=== PATIENT | male | born 1965 | race African-American/Black ===

== ENCOUNTER 2019-05-01 22:29 | Inpatient (IN) | payer OTHER ==
[~2019-05-01] VITALS: Ht 182.9 cm; Wt 106.1 kg
[2019-05-01] MEDS ORDERED: methylPREDNISolone SOD SUCC 125 MG/2 ML VL ONE (22:31)
[2019-05-01] MEDS ORDERED: SODIUM CHLORIDE 0.9% 1,000 ML IV ONE (22:38)
[2019-05-01] MEDS ORDERED: ONDANSETRON HCL 4 MG/2 ML VIAL ONE (22:41)
[2019-05-01] MEDS ORDERED: IPRATROPIUM BROM 0.5 MG/2.5ML INH SOL NEB ONE (22:45)
[2019-05-01] MEDS ORDERED: ALBUTEROL SULF 2.5 MG/0.5ML(0.5%) NEB SOLN NEB ONE (22:45)
[2019-05-01] MEDS ORDERED: ONDANSETRON HCL 4 MG/2 ML VIAL IV ONE (22:45)
[2019-05-01] MEDS ORDERED: methylPREDNISolone SOD SUCC 125 MG/2 ML VL IV ONE (22:45)
[2019-05-01 23:22] LABS: Basophils # (auto) 0 uL; Eosinophils # (auto) 0.3 uL; Eosinophils % (auto) 5.7 % (0.0-7.0); Hematocrit 40.4 % (41.0-53.0); Hemoglobin 12.6 g/dL (13.5-17.5); Lymphocytes # (auto) 2.2 uL; Lymphocytes % (auto) 46.3 % (10.0-50.0); Mean Corpuscular Hemoglobin 22.3 pg (28.0-32.0); Mean Corpuscular Hgb Conc. 31.3 g/dL (32.0-36.0); Mean Corpuscular Volume 71.2 fL (80.0-100.0); Monocytes # (auto) 0.5 uL; Monocytes % (auto) 11.6 % (0.0-12.0); Neutrophils # (auto) 1.6 uL; Neutrophils % (auto) 35.4 % (37.0-80.0); Nucleated Red Blood Cells % 0.2 %; Platelet Count (auto) 295 10^3/uL (140-450); Red Blood Cells 5.67 10^6/uL (4.5-5.90); Red Cell Distribution Width 19.1 % (11.8-14.3); White Blood Cell 4.7 10^3/uL (4.4-10.8)
[2019-05-01 23:41] LABS: Alanine Aminotransferase 41 U/L (16-61); Albumin 3.9 g/dL (3.4-5.0); Anion Gap 13 (5-15); Aspartate Aminotransferase 42 U/L (15-37); BUN/Creatinine Ratio 10.7; Blood Urea Nitrogen 12 mg/dL (7-18); Calcium 8.6 mg/dL (8.5-10.1); Carbon Dioxide 21 mmol/L (21-32); Chloride 110 mmol/L (98-107); GFR African American 88 mL/min; GFR Non-African American 72 mL/min; Glucose 106 mg/dL (74-106); Potassium 3.4 mmol/L (3.5-5.1); Salicylate < 1.7 mg/dL (2.8-20.0); Sodium 144 mmol/L (136-145)
[2019-05-01 23:46] LABS: Acetaminophen < 2.0 ug/mL (10-30); Alkaline Phosphatase 99 U/L (45-117); Bilirubin, Total 0.3 mg/dL (0.2-1.0); Total Protein 8.3 g/dL (6.4-8.2)
[2019-05-02] VITALS (9 sets, daily range): BP systolic 118–172; BP diastolic 69–117
[2019-05-02 01:48] LABS: Urine Bacteria FEW /hpf (None Seen); Urine Blood Negative /uL (Negative); Urine Hyaline Cast MOD /lpf (0 - 2); Urine WBC 1 /hpf (0 - 3)
[2019-05-02 02:00] LABS: Amphetamine Screen, Urine NEGATIVE (NEGATIVE); Barbiturate Scree,Urine NEGATIVE (NEGATIVE); Benzodiazephine Screen, Urine NEGATIVE (NEGATIVE); Cannabinoid Screen, Urine NEGATIVE (NEGATIVE); Cocaine Screen, Urine NEGATIVE (NEGATIVE); Opiate Scree,Urine NEGATIVE (NEGATIVE); Phencyclidine Screen, Urine NEGATIVE (NEGATIVE)
[2019-05-02] MEDS ORDERED: MORPHINE SULF INJ 2 MG/ML SYRINGE 1ML IV PRN ×2 (05:30)
[2019-05-02] MEDS ORDERED: ACETAMINOPHEN 500 MG TAB PO PRN (05:30)
[2019-05-02] MEDS ORDERED: NITROGLYCERIN 0.4 MG SL TAB SL PRN (05:30)
[2019-05-02] MEDS ORDERED: POTASSIUM EFFERVESENT TAB 25 MEQ PO ONE (06:00)
[2019-05-02] MEDS ORDERED: AZITHROMYCIN 500MG/ 250ML 250 ML IV ONE (06:15)
[2019-05-02] MEDS: IPRATROPIUM BROM 0.5 MG/2.5ML INH SOL NEB SCH ×3 (06:23→19:10)
[2019-05-02] MEDS: ALBUTEROL SULF 2.5 MG/0.5ML(0.5%) NEB SOLN NEB SCH ×3 (06:24→19:10)
--- NOTE | 2019-05-02 09:40 | NUR ---
Telemetry admit from [facility] admitted to Telemetry unit after SBAR received from SATHYA Carpenter. Patient oriented to AMRITA JON RN primary RN, unit, room, bed, and unit policies regarding patient care and visiting hours. Patient now on continuous telemetry monitoring, tele box # 10 and telemetry reading on arrival to unit is NSR reading 95BPM. Patient placed on bedside oxygen @ 4l N/C weighed by bedscale and encouraged to call if they need something with call light within reach. Bed in low/locked position, bed rails up x2. All questions and concerns addressed, patient verbalized understanding.
[2019-05-02] MEDS ORDERED: LEVOFLOXACIN 750MG 150 ML IV SCH (10:00)
[2019-05-02] MEDS ORDERED: cefTRIAXone 1GM/50ML D5W 50 ML IV SCH (10:00)
[2019-05-02] MEDS ORDERED: methylPREDNISolone SOD SUCC 40 MG/ML VL IV SCH (10:00)
[2019-05-02] MEDS ORDERED: AZITHROMYCIN 500MG/ 250ML 250 ML IV SCH (10:00)
--- NOTE | 2019-05-02 10:01 | NUR ---
VISITORS PATIENT STATED "I DON'T WANT ANY VISITORS OTHER THAN KELSI HINES AND HER CHILDREN." WILL INFORM SECURITY
[2019-05-02] MEDS: FAMOTIDINE 20 MG TAB PO SCH (10:26)
[2019-05-02] MEDS ORDERED: TRAZ150T79 PO (10:28)
[2019-05-02] MEDS ORDERED: FOLIC ACID 1 MG TAB PO ONE (12:45)
[2019-05-02] MEDS ORDERED: THIAMINE HCL 100 MG TAB PO ONE (12:45)
[2019-05-02] MEDS ORDERED: POTASSIUM CHL 20 Meq TABLET PO ONE (13:00)
[2019-05-02] MEDS ORDERED: chlordiazePOXIDE HCL 5 MG CAP PO PRN (13:00)
[2019-05-02] MEDS ORDERED: FUROSEMIDE 20 MG/2 ML VIAL IV ONE (13:00)
--- NOTE | 2019-05-02 13:00 | NUR ---
MD ROUNDS DR ALMANZA AT BEDSIDE DISCUSSING POC WITH PATIENT. ANSWERED ALL QUESTIONS/CONCERNS. NEW ORDERS RECEIVED/CARRIED OUT. WILL CONTINUE TO MONITOR
--- NOTE | 2019-05-02 13:15 | NUR ---
LAB RAPID INFLUENZA SWAB SENT
[2019-05-02] MEDS: cloNIDine HCL 0.1 MG TAB PO PRN ×2 (13:23→17:48)
[2019-05-02 14:24] LABS: % Iron Saturation 6.8 % (20-55)
[2019-05-02 14:27] LABS: Magnesium 1.9 mg/dL (1.6-2.6)
[2019-05-02] MEDS: BUDESONIDE (INHALATION) 0.5 MG/2 ML NEB NEB SCH (19:10)
--- NOTE | 2019-05-02 19:13 | NUR ---
Opening Shift Note Assumed care of patient, awake and alert x4. No S/S of distress/SOB or pain. RT is at bedside administering a breathing treatment. Instructed on POC and to call for assist PRN. All questions and concerns answered, will continue to monitor for changes Q1hr and PRN.
--- NOTE | 2019-05-02 20:00 | NUR ---
Refused physical assessment Patient is refusing to have a physical assessment completed stating he is too tired and that he'll do it tomorrow. He did allow me to assess his lung sounds but refused everything else. No S/S of distress, SOB, or pain. He is receiving oxygen via nasal cannula at 2 L/min.
--- NOTE | 2019-05-02 20:07 | NUR ---
Paged hospitalist, patient is requesting a sleeping pill.
--- NOTE | 2019-05-02 20:25 | NUR ---
Hospitalist called back, new order received to continue home medication trazodone HCL 150mg tab. Will carry out and continue to monitor patient.
[2019-05-02] MEDS: traZODone HCL 50 MG TAB PO PRN (21:41)
[2019-05-02] MEDS: methylPREDNISolone SOD SUCC 125 MG/2 ML VL IV SCH (21:41)
[2019-05-02] MEDS: HYDROcodone-ACET 5/325MG TAB PO PRN (21:50)
[2019-05-03 04:30] VITALS: BP 135/96
[2019-05-03 06:20] LABS: Basophils # (auto) 0.1 uL; Basophils % (auto) 1.1 % (0.0-2.0); Eosinophils # (auto) 0 uL; Hematocrit 37.6 % (41.0-53.0); Hemoglobin 11.5 g/dL (13.5-17.5); Lymphocytes # (auto) 0.5 uL; Lymphocytes % (auto) 4.3 % (10.0-50.0); Mean Corpuscular Hemoglobin 21.8 pg (28.0-32.0); Mean Corpuscular Hgb Conc. 30.6 g/dL (32.0-36.0); Mean Corpuscular Volume 71.3 fL (80.0-100.0); Monocytes # (auto) 0.4 uL; Monocytes % (auto) 3.2 % (0.0-12.0); Neutrophils # (auto) 10.8 uL; Neutrophils % (auto) 91.4 % (37.0-80.0); Nucleated Red Blood Cells % 0.1 %; Platelet Count (auto) 254 10^3/uL (140-450); Red Blood Cells 5.26 10^6/uL (4.5-5.90); Red Cell Distribution Width 19.1 % (11.8-14.3); White Blood Cell 11.8 10^3/uL (4.4-10.8)
[2019-05-03 06:38] LABS: BUN/Creatinine Ratio 15.9; Calcium 7.8 mg/dL (8.5-10.1); Potassium 4.3 mmol/L (3.5-5.1)
[2019-05-03] MEDS: IPRATROPIUM BROM 0.5 MG/2.5ML INH SOL NEB SCH ×3 (06:45→18:03)
[2019-05-03] MEDS: BUDESONIDE (INHALATION) 0.5 MG/2 ML NEB NEB SCH ×2 (06:45→18:03)
[2019-05-03] MEDS: ALBUTEROL SULF 2.5 MG/0.5ML(0.5%) NEB SOLN NEB SCH ×3 (06:45→18:03)
--- NOTE | 2019-05-03 07:30 | NUR ---
Opening Shift Note Assuming care of patient at this time. Patient is awake and alert. Patient denies pain. Bed is locked and lowered with side rails up x2. Patient shows no signs or symptoms of distress. Patient denies shortness of breath, though wheezes are auscultated upon expiration posteriorly. Patient refuses physical assessment at this time. Patient is sitting on the edge of the bed with feet dangling. Instructed patient on the plan of care or today and to call for assistance as needed. Call light within reach. Will continue to round hourly and as needed.
--- NOTE | 2019-05-03 08:00 | NUR ---
Refusing Physical Assessment Patient is refusing physical assessment at this time. When asked why patient states, "I'm busy watching TV." Educated patient on the importance of physical assessment in order to monitor patient. Patient continues to refuse, however, lets this RN auscultate his lungs. Physical assessment was documented according to patient's answers and visual cues. Will continue to try and assess and educate throughout shift.
[2019-05-03 09:00] VITALS: BP 152/108
[2019-05-03] MEDS ORDERED: AZITHROMYCIN 250 MG TAB PO ONE (10:30)
[2019-05-03] MEDS: FOLIC ACID 1 MG TAB PO SCH (10:46)
[2019-05-03] MEDS: methylPREDNISolone SOD SUCC 125 MG/2 ML VL IV SCH ×2 (10:46→21:03)
[2019-05-03] MEDS: FAMOTIDINE 20 MG TAB PO SCH (10:47)
[2019-05-03] MEDS: THIAMINE HCL 100 MG TAB PO SCH (10:47)
[2019-05-03] MEDS: cloNIDine HCL 0.1 MG TAB PO PRN (13:26)
--- NOTE | 2019-05-03 15:40 | NUR ---
Transfer; I have called [facility] at their [place] office and spoke to Jany who is in pt coordinator at [phone] ext [phone] She is to notifiy transfer CM and get back to me . [facility] will need to give me auth for transport and names of facilities.
--- NOTE | 2019-05-03 16:03 | NUR ---
Transfer: Dr Daniels at [facility] reviewed chart and stated pt does not need to be transferred into network and that pt will stay at this facility. Authorization for stay has been given by [facility] of [facility]
--- NOTE | 2019-05-03 16:07 | NUR ---
Dr. Saeed paged and notifed of Dr. Daniels not wanting to transfer pt and that auth for in pt stay given , [facility]
--- NOTE | 2019-05-03 16:10 | NUR ---
Call from Call from Dr. Saeed. Dr. Saeed aware of patient not being transferred. Patient's stay is authorized. Order to cancel discharge and social service consult order. Will notify patient.
[2019-05-03] MEDS: HYDROcodone-ACET 5/325MG TAB PO PRN (16:21)
[2019-05-03 17:36] VITALS: BP 145/91
[2019-05-03] MEDS: FERROUS SULFATE 325 MG TAB PO SCH (17:53)
--- NOTE | 2019-05-03 19:30 | NUR ---
RECEIVED PT FROM DAY RN POC REVIEWED
--- NOTE | 2019-05-03 19:39 | NUR ---
Closing Shift Note Patient resting in bed. NO distress noted. Will endorse care to the night shift manager RN.
[2019-05-03] MEDS: traZODone HCL 50 MG TAB PO PRN (21:02)
[2019-05-03 22:00] VITALS: BP 140/97
[2019-05-04] VITALS (7 sets, daily range): BP systolic 144–161; BP diastolic 92–110
--- NOTE | 2019-05-04 02:32 | NUR ---
resting comfortable with eyes closed resp even and unlabored
--- NOTE | 2019-05-04 06:55 | NUR ---
REPORT GIVEN TO AM NURSE POC REVIEWED
[2019-05-04] MEDS: IPRATROPIUM BROM 0.5 MG/2.5ML INH SOL NEB SCH ×4 (07:27→22:17)
[2019-05-04] MEDS: ALBUTEROL SULF 2.5 MG/0.5ML(0.5%) NEB SOLN NEB SCH ×4 (07:27→22:17)
--- NOTE | 2019-05-04 07:36 | NUR ---
Opening Shift Note Assumed care of patient, awake and alert. No S/S of distress/SOB. Pt denies any pain at this time. Bed in lowest and locked position with side rails up x2 and call light within reach. Instructed on POC and to call for assist PRN, will continue to monitor for changes Q1hr and PRN.
--- NOTE | 2019-05-04 09:30 | NUR ---
IV removal RIGHT AC IV DC'd with clean sterile technique, catheter fully intact. Pressure dressing applied to site. Patient tolerated well.
--- NOTE | 2019-05-04 09:30 | NUR ---
IV insertion IV access obtained, via clean sterile technique by inserting 20 gauge catheter at LEFT FA after 1 attempt(s). IV secured properly. No trauma to site. Patient tolerated well.
[2019-05-04] MEDS: FOLIC ACID 1 MG TAB PO SCH (10:00)
[2019-05-04] MEDS: methylPREDNISolone SOD SUCC 125 MG/2 ML VL IV SCH ×2 (10:00→17:35)
[2019-05-04] MEDS: FERROUS SULFATE 325 MG TAB PO SCH ×2 (10:00→17:35)
[2019-05-04] MEDS: THIAMINE HCL 100 MG TAB PO SCH (10:00)
[2019-05-04] MEDS: FAMOTIDINE 20 MG TAB PO SCH (10:01)
[2019-05-04] MEDS: AZITHROMYCIN 250 MG TAB PO SCH (10:01)
[2019-05-04] MEDS: cloNIDine HCL 0.1 MG TAB PO PRN (10:02)
[2019-05-04] MEDS ORDERED: ENOXAPARIN SOD 40 MG/0.4 ML SYRINGE SC ONE (10:30)
[2019-05-04] MEDS: BUDESONIDE (INHALATION) 0.5 MG/2 ML NEB NEB SCH ×2 (11:18→18:11)
--- NOTE | 2019-05-04 12:12 | NUR ---
Nutrition Assessment Notes please see attached link for complete assessment Est. Needs ABW [id number] kcal (23-25 kcal/kgBW), 97-106 gms pro (1.0-1.1 gms/kgBW). Will continue to monitor pertinent labs and reassess nutrient need prn Addendum: 05/04/19 at [address] Amended: Links added.
[2019-05-04] MEDS ORDERED: methylPREDNISolone SOD SUCC 125 MG/2 ML VL IV SCH (18:00)
[2019-05-04] MEDS: traZODone HCL 50 MG TAB PO PRN (20:58)
[2019-05-04] MEDS: HYDROcodone-ACET 5/325MG TAB PO PRN (20:58)
[2019-05-05] MEDS: ALBUTEROL SULF 2.5 MG/0.5ML(0.5%) NEB SOLN NEB SCH ×6 (02:00→22:03)
[2019-05-05] MEDS: IPRATROPIUM BROM 0.5 MG/2.5ML INH SOL NEB SCH ×6 (02:00→22:03)
--- NOTE | 2019-05-05 02:08 | NUR ---
PT REFUSED MED NEB TX SCHEDULED FOR 0200. PT REQUESTED TO REMAIN ASLEEP. WILL CONTINUE WITH NEXT SCHEDULED TX.
[2019-05-05 05:00] VITALS: BP 151/98
[2019-05-05] MEDS: methylPREDNISolone SOD SUCC 125 MG/2 ML VL IV SCH ×2 (06:20→17:02)
--- NOTE | 2019-05-05 08:00 | NUR ---
Opening Shift Note Assumed care of patient, awake and alert. No S/S of distress/SOB or pain. Patient stated he is feeling better today, though he still has expiratory wheezing. He stated the medications are working. Instructed on POC and to call for assist PRN, will continue to monitor for changes Q1hr and PRN.
[2019-05-05] MEDS: FERROUS SULFATE 325 MG TAB PO SCH ×2 (08:18→17:02)
[2019-05-05] MEDS: HYDROcodone-ACET 5/325MG TAB PO PRN ×2 (08:57→20:11)
[2019-05-05 09:00] VITALS: BP 161/102
[2019-05-05] MEDS: THIAMINE HCL 100 MG TAB PO SCH (09:18)
[2019-05-05] MEDS: FOLIC ACID 1 MG TAB PO SCH (09:18)
[2019-05-05] MEDS: FAMOTIDINE 20 MG TAB PO SCH (09:18)
[2019-05-05] MEDS: AZITHROMYCIN 250 MG TAB PO SCH (09:19)
[2019-05-05] MEDS: ENOXAPARIN SOD 40 MG/0.4 ML SYRINGE SC SCH (09:19)
[2019-05-05 09:33] VITALS: BP 151/98
[2019-05-05] MEDS: cloNIDine HCL 0.1 MG TAB PO PRN (10:18)
[2019-05-05] MEDS: BUDESONIDE (INHALATION) 0.5 MG/2 ML NEB NEB SCH ×2 (11:04→22:03)
--- NOTE | 2019-05-05 13:34 | NUR ---
assessment Patient is a 53 year old male who is alert and oriented. Patients cognitive abilities are intact. Prior to admission patient lived home with family and functioned independently. Patient informed me he is able to care for his own ADLs. Per patient he will return home to his prior living arrangements post discharge and family will transport him home. Patient informed me he has no PCP. Patient informed me he just moved back to the area from [place]. Patient was in [place] for the past 1.5 years. Ele Elizalde to see patient for PCP. Patient informed me he feels safe returning home on discharge. Patient has home 02 and a nebulizer. Patient has no post discharge needs at this time. I informed patient he has a right to speak to a geriatric social worker regarding all care. I informed patient he has a right to participate in any and all discharge planning. Patient does not have a POA and advanced directive. I have offered patient information on POA and advanced directives. I informed the patient the advantages and benefits of having an Advanced Directive. Patient verbalized understanding and agreed to discharge plan. Addendum: 05/05/19 at 1337 by Ele COE Amended: Links added.
[2019-05-05] MEDS ORDERED: amLODIPine BESYLATE 5 MG TAB PO ONE (13:45)
[2019-05-05 14:11] VITALS: BP 147/97
[2019-05-05 17:21] VITALS: BP 158/93
--- NOTE | 2019-05-05 19:50 | NUR ---
RECEIVED PATIENT FROM DAY SHIFT RN. PATIENT RESTING IN BED. NO S/S OF DISTRESS NOTED. C/O BACK PAIN @ 05/05. WILL COME BACK FOR PAIN MEDICATION LATER. POC INSTRUCTED AND ENCOURAGED PATIENT TO CALL FOR ELECTRICIAN MARINE IF NEEDED. BED IN LOWEST POSITION WITH SIDE RAILS UP X 2. CALL [facility] WITHIN REACH. CONTINUE TO MONITOR FOR CHANGES Q1H AND PRN.
--- NOTE | 2019-05-05 20:11 | NUR ---
MEDICATED PATIENT FOR PAIN @ 05/05. CONTINUE TO MONITOR.
[2019-05-05] MEDS: traZODone HCL 50 MG TAB PO PRN (21:12)
--- NOTE | 2019-05-05 21:12 | NUR ---
PATIENT PREFERRED TO HAVE TRAZODONE NOW INSTEAD OF RESTORIL. MEDICATED PATIENT ORDERED. CONTINUE TO MONITOR.
[2019-05-05 22:00] VITALS: BP 158/99
[2019-05-05] MEDS ORDERED: TEMAZEPAM 15 MG CAP PO ONE (22:00)
--- NOTE | 2019-05-06 01:39 | NUR ---
PATIENT SLEEPING. NO S/S OF DISTRESS NOTED. CONTINUE CARE.
[2019-05-06] MEDS: IPRATROPIUM BROM 0.5 MG/2.5ML INH SOL NEB SCH ×6 (02:00→22:48)
[2019-05-06] MEDS: ALBUTEROL SULF 2.5 MG/0.5ML(0.5%) NEB SOLN NEB SCH ×6 (02:00→22:48)
--- NOTE | 2019-05-06 04:45 | NUR ---
RECEIVED CALL FROM [facility], PATIENT HAD A RUN OF VT OF 4 BEATS, CHECKED PATIENT NO S/S OF DISTRESS NOTED. DENIED PAIN AND ANY CHEST DISCOMFORT. VITALS STABLE: TEMP 98, HR 79, RR 22, BP 148/92, O2 SAT 97% ON 2L/NC. PATIENT IS SR 73 NOW. WILL REPORT TO DAY SHIFT RN TO MD. CONTINUE TO MONITOR.
[2019-05-06 05:00] VITALS: BP 148/92
[2019-05-06] MEDS: methylPREDNISolone SOD SUCC 125 MG/2 ML VL IV SCH ×2 (05:59→18:13)
[2019-05-06] MEDS: BUDESONIDE (INHALATION) 0.5 MG/2 ML NEB NEB SCH ×2 (07:10→22:47)
--- NOTE | 2019-05-06 08:00 | NUR ---
Opening Shift Note Assumed care of patient, awake and alert. Patient want to go home today and says she is ready. No S/S of distress/SOB or pain. Instructed on POC and to call for assist PRN, will continue to monitor for changes Q1hr and PRN.
[2019-05-06 09:00] VITALS: BP 149/100
[2019-05-06] MEDS: HYDROcodone-ACET 5/325MG TAB PO PRN ×3 (09:20→21:11)
[2019-05-06] MEDS: FOLIC ACID 1 MG TAB PO SCH (09:23)
[2019-05-06] MEDS: FERROUS SULFATE 325 MG TAB PO SCH ×2 (09:23→18:13)
[2019-05-06] MEDS: AZITHROMYCIN 250 MG TAB PO SCH (09:24)
[2019-05-06] MEDS: FAMOTIDINE 20 MG TAB PO SCH (09:24)
[2019-05-06] MEDS: THIAMINE HCL 100 MG TAB PO SCH (09:24)
[2019-05-06] MEDS: ENOXAPARIN SOD 40 MG/0.4 ML SYRINGE SC SCH (09:25)
[2019-05-06] MEDS ORDERED: amLODIPine BESYLATE 5 MG TAB PO SCH (10:00)
--- NOTE | 2019-05-06 11:28 | NUR ---
PT REQUESTING SODA PATIENT REQUESTED JEAN-CLAUDE ROXY. HE WAS INFORMED THAT WE DO NOT STOCK ANY SODA ON THE FLOOR BUT THAT THIS NURSE WOULD CALL DIETARY AND REQUEST THAT TWO CANS BE SENT UP FOR LUNCH. HE STATED IF WE DO NOT HAVE JEAN-CLAUDE [facility]OXY THAT [facility] WOULD BE ACCEPTABLE. HE ALSO WANTS TWO CANS SENT WITH EACH MEAL. THIS NURSE CALLED AND LEFT A MESSAGE WITH DIETARY AND ALSO ADDED A NOTE TO THE PATIENT'S DIET ORDER.
[2019-05-06 13:00] VITALS: BP 142/96
[2019-05-06 17:00] VITALS: BP 148/88
--- NOTE | 2019-05-06 19:11 | NUR ---
RECEIVED PATIENT FROM DAY SHIFT RN. PATIENT RESTING IN BED. NO S/S OF DISTRESS NOTED. C/O BACK PAIN @ 4/10 AFTER MEDICATION EARLIER. WILL COME BACK FOR PAIN MEDICATION LATER WHEN THE TIME IS DUE AND PER PATIENT REQUESTS. POC INSTRUCTED AND ENCOURAGED PATIENT TO CALL FOR CLASS B DRIVER IF NEEDED. BED IN LOWEST POSITION WITH SIDE RAILS UP X 2. CALL [facility] WITHIN REACH. CONTINUE TO MONITOR FOR CHANGES Q1H AND PRN.
[2019-05-06] MEDS: traZODone HCL 50 MG TAB PO PRN (21:10)
--- NOTE | 2019-05-06 21:21 | NUR ---
MEDICATED PATIENT FOR BACK PAIN @ 05/05. CONTINUE TO MONITOR.
[2019-05-06 22:00] VITALS: BP 155/102
--- NOTE | 2019-05-07 01:20 | NUR ---
PATIENT SLEEPING. NO S/S OF DISTRESS NOTED. CONTINUE CARE.
[2019-05-07] MEDS: IPRATROPIUM BROM 0.5 MG/2.5ML INH SOL NEB SCH ×6 (02:00→22:39)
[2019-05-07] MEDS: ALBUTEROL SULF 2.5 MG/0.5ML(0.5%) NEB SOLN NEB SCH ×6 (02:00→22:39)
--- NOTE | 2019-05-07 02:17 | NUR ---
RT NOTE PT ASKED NOT TO BE WOKEN FOR THIS SCHEDULED TX IF SLEEPING. PT SLEEPING. NO SIGNS OF RESP DISTRESS NOTED BY RT. PT AWARE THAT HE CAN HAVE RT PAGED IF NEEDED.
[2019-05-07 05:00] VITALS: BP 140/85
[2019-05-07] MEDS: methylPREDNISolone SOD SUCC 125 MG/2 ML VL IV SCH ×2 (05:49→21:25)
--- NOTE | 2019-05-07 05:56 | NUR ---
PATIENT SLEEPING. NO S/S OF DISTRESS NOTED. CONTINUE CARE.
[2019-05-07 08:00] VITALS: BP 149/100
[2019-05-07] MEDS: FERROUS SULFATE 325 MG TAB PO SCH ×2 (08:54→18:10)
[2019-05-07] MEDS: HYDROcodone-ACET 5/325MG TAB PO PRN ×2 (08:54→16:22)
[2019-05-07 09:00] VITALS: BP 139/78
[2019-05-07] MEDS: amLODIPine BESYLATE 5 MG TAB PO SCH (10:23)
[2019-05-07] MEDS: AZITHROMYCIN 250 MG TAB PO SCH (10:23)
[2019-05-07] MEDS: THIAMINE HCL 100 MG TAB PO SCH (10:24)
[2019-05-07] MEDS: ENOXAPARIN SOD 40 MG/0.4 ML SYRINGE SC SCH (10:24)
[2019-05-07] MEDS: FOLIC ACID 1 MG TAB PO SCH (10:24)
[2019-05-07] MEDS: FAMOTIDINE 20 MG TAB PO SCH (10:24)
[2019-05-07] MEDS: BUDESONIDE (INHALATION) 0.5 MG/2 ML NEB NEB SCH ×2 (10:34→22:40)
--- NOTE | 2019-05-07 11:28 | NUR ---
Nutrition Follow-up Notes Wt.: 112.8 kg Pt was sleeping with no family by bedside. per pt records pt with acute on chronic resp distress, wheezing now improving. pt is currently on cardiac diet with adequate PO of 100% x 4 per RN doc Est. Needs ABW [id number] kcal (23-25 kcal/kgBW), 97-106 gms pro (1.0-1.1 gms/kgBW). Will continue to monitor pertinent labs and reassess nutrient need prn Labs: No new labs today 05/03: GLU 144 H, CA 7.8 L. Skin: Quan scale 19, low risk, skin intact per RN doc per packaging technician. GI: Pt had 1 BM yesterday per packaging technician. PES: Decreased nutrient needs r.t adiposity aeb pt`s high BMI of 34.1 kgm2 Altered nutrition related lab values r/t current/chronic medical condition aeb hyperglycemia, hypocalcemia Will continue to monitor PO intake, pertinent labs, skin status and weight trends. F/u in 3-5 days. Rec: 1.) refer to [employer] dietitian on DC. 2) continue current plan of care
[2019-05-07 13:00] VITALS: BP 148/96
[2019-05-07 17:00] VITALS: BP 145/89
[2019-05-07 21:12] VITALS: BP 140/85
[2019-05-07] MEDS: traZODone HCL 50 MG TAB PO PRN (21:25)
[2019-05-08] VITALS (7 sets, daily range): BP systolic 134–152; BP diastolic 78–98
[2019-05-08] MEDS: ALBUTEROL SULF 2.5 MG/0.5ML(0.5%) NEB SOLN NEB SCH ×7 (02:00→23:06)
[2019-05-08] MEDS: IPRATROPIUM BROM 0.5 MG/2.5ML INH SOL NEB SCH ×7 (02:00→23:06)
[2019-05-08] MEDS: methylPREDNISolone SOD SUCC 125 MG/2 ML VL IV SCH ×3 (06:41→20:48)
[2019-05-08] MEDS: HYDROcodone-ACET 5/325MG TAB PO PRN ×2 (08:37→18:37)
[2019-05-08] MEDS: FERROUS SULFATE 325 MG TAB PO SCH ×2 (08:47→18:11)
[2019-05-08] MEDS: BUDESONIDE (INHALATION) 0.5 MG/2 ML NEB NEB SCH ×2 (09:48→22:57)
[2019-05-08] MEDS: ENOXAPARIN SOD 40 MG/0.4 ML SYRINGE SC SCH (10:00)
[2019-05-08] MEDS: FOLIC ACID 1 MG TAB PO SCH (10:03)
[2019-05-08] MEDS: amLODIPine BESYLATE 5 MG TAB PO SCH (10:04)
[2019-05-08] MEDS: FAMOTIDINE 20 MG TAB PO SCH (10:04)
[2019-05-08] MEDS: THIAMINE HCL 100 MG TAB PO SCH (10:05)
[2019-05-08] MEDS: AZITHROMYCIN 250 MG TAB PO SCH (10:05)
--- NOTE | 2019-05-08 17:56 | NUR ---
Respiratory note: At bedside for med neb tx. Pt tolerating tx well via mask. Pt communicated he only does the 1800 and 2200 noc txs, so he wished not to be woken up at that time. Will continue to monitor and communicate pts wishes to assigned NOC RN
--- NOTE | 2019-05-08 19:05 | NUR ---
OPENING NOTE- NOC SHIFT PATIENT IS SITTING UP IN BED. NO S/SX OF DISTRESS, SOB OR PAIN. BED IS LOCKED AT LOWEST. BEDSIDE TABLE WITHIN REACH. INSTRUCTED PATIENT TO CALL PRN; PATIENT VERBALIZED UNDERSTANDING WILL CONTINUE TO MONITOR Q1H AND PRN.
--- NOTE | 2019-05-08 20:05 | NUR ---
WHEEZING UPON AUSCULTATION NOTED INSPIRATORY AND EXPIRATORY WHEEZING THROUGHOUT LUNGS, MORE NOTICEABLE TO LEFT MIDDLE LOBE. PATIENT DENIES SOB OR DIZZINESS. VS WITHIN NORMAL LIMITS. NO S/SX OF DISTRESS.
[2019-05-08] MEDS: traZODone HCL 50 MG TAB PO PRN (20:54)
[2019-05-09] VITALS (7 sets, daily range): BP systolic 134–142; BP diastolic 79–88
[2019-05-09] MEDS: methylPREDNISolone SOD SUCC 125 MG/2 ML VL IV SCH ×3 (05:11→21:04)
[2019-05-09] MEDS: IPRATROPIUM BROM 0.5 MG/2.5ML INH SOL NEB SCH ×5 (06:10→22:39)
[2019-05-09] MEDS: ALBUTEROL SULF 2.5 MG/0.5ML(0.5%) NEB SOLN NEB SCH ×5 (06:11→22:40)
--- NOTE | 2019-05-09 07:30 | NUR ---
CLOSING NOTE- NOC SHIFT ENDORSED PATIENT CARE TO DAY SHIFT NURSE KINGSTON MCDONNELL NO S/SX OF DISTRESS, SOB OR PAIN. PATIENT RESTING COMFORTABLE IN BED.
--- NOTE | 2019-05-09 07:50 | NUR ---
Opening Shift Note Assumed care of patient, awake and alert. No S/S of distress/SOB or pain. Instructed on POC and to call for assist PRN, will continue to monitor for changes Q1hr and PRN. Bed locked in lowest position with two side rails up and call light in reach.
[2019-05-09] MEDS: FERROUS SULFATE 325 MG TAB PO SCH ×2 (08:18→19:14)
[2019-05-09] MEDS: HYDROcodone-ACET 5/325MG TAB PO PRN ×3 (08:18→21:06)
[2019-05-09] MEDS: THIAMINE HCL 100 MG TAB PO SCH (09:48)
[2019-05-09] MEDS: FAMOTIDINE 20 MG TAB PO SCH (09:48)
[2019-05-09] MEDS: FOLIC ACID 1 MG TAB PO SCH (09:48)
[2019-05-09] MEDS: ENOXAPARIN SOD 40 MG/0.4 ML SYRINGE SC SCH (09:48)
[2019-05-09] MEDS: AZITHROMYCIN 250 MG TAB PO SCH (09:48)
[2019-05-09] MEDS: amLODIPine BESYLATE 5 MG TAB PO SCH (09:51)
[2019-05-09] MEDS: BUDESONIDE (INHALATION) 0.5 MG/2 ML NEB NEB SCH ×2 (10:06→18:44)
[2019-05-09] MEDS ORDERED: guaiFENesin-DM 100/10mg/5ml SYR PO PRN (10:30)
[2019-05-09] MEDS ORDERED: DEXTROSE (50%) 50ML SYRG IV PRN (10:30)
[2019-05-09 10:55] LABS: Hematocrit 43.1 % (41.0-53.0); Hemoglobin 13.5 g/dL (13.5-17.5); Mean Corpuscular Hgb Conc. 31.2 g/dL (32.0-36.0); Mean Corpuscular Volume 70.5 fL (80.0-100.0); Platelet Count (auto) 301 10^3/uL (140-450); Red Blood Cells 6.11 10^6/uL (4.5-5.90); Red Cell Distribution Width 19.2 % (11.8-14.3); White Blood Cell 14.5 10^3/uL (4.4-10.8)
[2019-05-09 10:58] LABS: Band Neutrophils % (manual) 0; Basophils % (manual) 0 (0.0-2.0); Blast Cells 0; Eosinophils % (manual) 0 (0-7); Metamyelocytes % 0; Myelocytes % 0; Promyelocytes % 0; Reactive Lymphocytes 0
[2019-05-09 11:11] LABS: Calcium 8.1 mg/dL (8.5-10.1); Potassium 4.8 mmol/L (3.5-5.1)
[2019-05-09 11:13] LABS: BUN/Creatinine Ratio 26.3; Lymphocytes % (manual) 7 (10.0-50.0); Monocytes % (manual) 2 (0-12)
[2019-05-09] MEDS: InsuLIN REG 1unit/0.01ml Soln (100units/ml) SC SCH ×3 (11:30→21:05)
[2019-05-09] MEDS: ACCU-CHEK COMFORT CURVE STRIP VI SCH ×3 (11:30→21:05)
--- NOTE | 2019-05-09 12:41 | NUR ---
DR ALMANZA ROUNDING PATIENT TO HAVE TELE DC'D TELE REMOVED AND RETURNED TO ICU BULLET.
--- NOTE | 2019-05-09 19:05 | NUR ---
PATIENT IS ALERT AND ORIENTED X4, LAYING IN BED WATCHING TELEVISION. BED RAILS ARE UP X2, BELONGINGS WITHIN REACH, CALL LIGHT WITHIN REACH. WILL CONTINUE TO MONITOR Q1H HOUR AND PRN.
--- NOTE | 2019-05-09 22:44 | NUR ---
PT REQUEST NOT TO BE DISTURBED FOR 0200 MED NEB TX, PT NOTIFIED TO HAVE RT PAGED IF SOB OCCURS.
[2019-05-10] MEDS: ALBUTEROL SULF 2.5 MG/0.5ML(0.5%) NEB SOLN NEB SCH ×6 (02:00→22:25)
[2019-05-10] MEDS: IPRATROPIUM BROM 0.5 MG/2.5ML INH SOL NEB SCH ×6 (02:00→22:25)
[2019-05-10 05:00] VITALS: BP 140/86
[2019-05-10] MEDS: HYDROcodone-ACET 5/325MG TAB PO PRN ×2 (05:06→21:20)
[2019-05-10] MEDS: InsuLIN REG 1unit/0.01ml Soln (100units/ml) SC SCH ×4 (05:46→21:18)
[2019-05-10] MEDS: methylPREDNISolone SOD SUCC 125 MG/2 ML VL IV SCH ×3 (05:46→21:18)
[2019-05-10] MEDS: ACCU-CHEK COMFORT CURVE STRIP VI SCH ×4 (05:47→21:19)
[2019-05-10] MEDS: BUDESONIDE (INHALATION) 0.5 MG/2 ML NEB NEB SCH ×2 (06:32→22:25)
--- NOTE | 2019-05-10 07:39 | NUR ---
CLOSING NOTE- NOC SHIFT PATIENT IS RESTING IN BED. ENDORSED PATIENT CARE TO DAY SHIFT RN. NO S/SX OF DISTRESS, SOB OR PAIN.
[2019-05-10 09:00] VITALS: BP 139/88
[2019-05-10] MEDS: ENOXAPARIN SOD 40 MG/0.4 ML SYRINGE SC SCH (10:00)
[2019-05-10] MEDS: FOLIC ACID 1 MG TAB PO SCH (10:17)
[2019-05-10] MEDS: FERROUS SULFATE 325 MG TAB PO SCH ×2 (10:17→18:16)
[2019-05-10] MEDS: amLODIPine BESYLATE 5 MG TAB PO SCH (10:18)
[2019-05-10] MEDS: FAMOTIDINE 20 MG TAB PO SCH (10:18)
[2019-05-10] MEDS: THIAMINE HCL 100 MG TAB PO SCH (10:18)
[2019-05-10] MEDS: LORazepam 0.5 MG TAB PO PRN (12:58)
[2019-05-10 13:00] VITALS: BP 141/86
--- NOTE | 2019-05-10 14:52 | NUR ---
Nutrition Follow-up Notes Wt.: 107.9 kg as of yesterday. Pt's on oxygen via nasal cannula, asleep, no immediate family member at bedside during rounds this morning.PT"s no signs of distress noted earlier, currently on Regular diet with adequate PO intake aeb 90% ave. consumed meals (x6) in last 2.5 days. Est. Needs ABW [id number] kcal (23-25 kcal/kgBW), 97-106 gms pro (1.0-1.1 gms/kgBW). Will continue to monitor pertinent labs and reassess nutrient need prn Labs: No new labs today except for POC Gluc 223 H; 05/09/19: Gluc 238 H, Na 134 L, BUN 25 H, Ca 8.1 L; HbA1c 5.9 wnl Skin: Quan scale 19, low risk, skin intact per RN doc per documentation analyst. GI: Pt had 1 BM yesterday per documentation analyst. PES: Altered nutrition related lab values r/t current/chronic medical condition aeb hyperglycemia, hypocalcemia Obesity r/t food intake more than body requirement aeb 133% IBW, BMI 32.2 kg/m2 and increased body adiposity. Will continue to monitor PO intake, pertinent labs, skin status and weight trends. F/u in 3 to 5 days. Rec: 1.) If gluc level remains consistently elev., consider Consistent High. Carb: 75 gms/meal diet. 2.) Continue close supervision with meals. 3.) Refer to CDE/RD for further nutrition educ. and weight monitoring upon discharge. 4.) Continue current plan of care.
[2019-05-10 17:00] VITALS: BP 139/84
--- NOTE | 2019-05-10 17:46 | NUR ---
Accucheck-203mg/dl, refused regular insulin SC.
--- NOTE | 2019-05-10 19:05 | NUR ---
OPENING NOTE - NOC SHIFT PATIENT IS ALERT AND ORIENTED AND HAS BEEN MOVED DURING DAY SHIFT FROM A TO B BED PER PATIENT REQUEST. PATIENT IS COMFORTABLE IN BED. NO S/SX OF DISTRESS, SOB OR PAIN. WHEEZING STILL HEARD UPON AUSCULTATION TO MID LOBES BILATERALLY; MORE TO LEFT. BEDSIDE TABLE WITHIN REACH, CALL LIGHT WITHIN REACH, BELONGINGS WITHIN REACH. DISCUSSED POC WITH PATIENT AND INSTRUCTED PATIENT TO CALL PRN; PATIENT VERBALIZED UNDERSTANDING. WILL CONTINUE TO MONITOR Q1H AND PRN.
[2019-05-10 20:05] VITALS: BP 133/82
[2019-05-10] MEDS: traZODone HCL 50 MG TAB PO PRN (21:20)
[2019-05-10 22:00] VITALS: BP 133/82
--- NOTE | 2019-05-10 23:03 | NUR ---
Respiratory note: PT TOOK OFF CPAP, PT STATES THAT HE WILL NOT BE ABLE TO SLEEP WITH IT. PT PLACED ON 2 L/M NC: HR 89, RR 18, SPO2 99%. PT ALSO ASKED TO NOT BE DISTURBED FOR HIS 0200 MED NEB TX. WILL CONTINUE TO MONITOR.
[2019-05-11] VITALS (7 sets, daily range): BP systolic 135–161; BP diastolic 84–94
[2019-05-11] MEDS: LORazepam 0.5 MG TAB PO PRN (01:32)
--- NOTE | 2019-05-11 01:50 | NUR ---
ROUNDS PATIENT SLEEPING AND IS BREATHING EVENLY. PULSE OXIMETER REMAINS CONTINUOUSLY ON AND IS READING AT 96%. PATIENT HAS NC AT 2L. NO S/SX OF DISTRESS, SOB OR PAIN.
[2019-05-11] MEDS: IPRATROPIUM BROM 0.5 MG/2.5ML INH SOL NEB SCH ×6 (02:00→22:21)
[2019-05-11] MEDS: ALBUTEROL SULF 2.5 MG/0.5ML(0.5%) NEB SOLN NEB SCH ×6 (02:00→22:21)
[2019-05-11] MEDS: InsuLIN REG 1unit/0.01ml Soln (100units/ml) SC SCH ×4 (06:24→21:26)
[2019-05-11] MEDS: ACCU-CHEK COMFORT CURVE STRIP VI SCH ×4 (06:24→21:04)
[2019-05-11] MEDS: methylPREDNISolone SOD SUCC 125 MG/2 ML VL IV SCH ×3 (06:24→21:03)
[2019-05-11] MEDS: HYDROcodone-ACET 5/325MG TAB PO PRN ×2 (06:25→20:05)
--- NOTE | 2019-05-11 07:20 | NUR ---
CLOSING NOTE- NOC SHIFT ENDORSED PATIENT CARE TO DAY SHIFT NURSE GWEN MCDONNELL PATIENT IS COMFORTABLE IN BED. NO SIGNS OF DISTRESS. PATIENT HEAD OF BED IS UP >30 DEGREES FOR SAFETY PRECAUTIONS.
--- NOTE | 2019-05-11 08:00 | NUR ---
ASSESSMENT NOTE PATIENT IS ALERT ORIENTED X4, RESTING IN BED COMFORTABLY, SELF REPOSITION NEEDED, NO STRESS NOTED, PAIN 0/10 AT THIS TIME, CALL LIGHT WITHIN REACH
[2019-05-11] MEDS: FERROUS SULFATE 325 MG TAB PO SCH ×2 (08:21→17:45)
[2019-05-11] MEDS: THIAMINE HCL 100 MG TAB PO SCH (08:56)
[2019-05-11] MEDS: FOLIC ACID 1 MG TAB PO SCH (08:56)
[2019-05-11] MEDS: FAMOTIDINE 20 MG TAB PO SCH (08:56)
[2019-05-11] MEDS: amLODIPine BESYLATE 5 MG TAB PO SCH (08:57)
[2019-05-11] MEDS: ENOXAPARIN SOD 40 MG/0.4 ML SYRINGE SC SCH (08:57)
[2019-05-11] MEDS: BUDESONIDE (INHALATION) 0.5 MG/2 ML NEB NEB SCH ×2 (09:54→22:21)
[2019-05-11] MEDS ORDERED: FUROSEMIDE 40 MG TAB PO ONE (10:30)
[2019-05-11] MEDS ORDERED: POTASSIUM CHL 10 Meq TABLET PO ONE (10:30)
--- NOTE | 2019-05-11 12:00 | NUR ---
PATIENT REFUSED TO TAKE INSULIN, DR ALMANZA MADE AWARE
[2019-05-11] MEDS: NEOMYCIN-BACITRACIN-POLYM 15GM TOP OINT TOP SCH ×2 (12:18→21:03)
--- NOTE | 2019-05-11 18:59 | NUR ---
PATIENT CONTINUE STABLE, AMBULATE NEEDED TO BATHROOM, CONTINUE ON BREATHING TREATMENT, CONTINUE MONITORING
[2019-05-11] MEDS: TEMAZEPAM 15 MG CAP PO PRN (20:25)
[2019-05-11] MEDS: CARBAMIDE PEROXIDE 6.5% OTIC(EAR) SOLN 15ML EACH EAR SCH (21:02)
[2019-05-11] MEDS: [UNRECOGNIZED DRUG - OTHER] PO SCH (21:03)
[2019-05-11] MEDS: VILANTEROL PO SCH (21:03)
[2019-05-11] MEDS: UMECLIDINIUM PO SCH (21:03)
[2019-05-12] MEDS: ALBUTEROL SULF 2.5 MG/0.5ML(0.5%) NEB SOLN NEB SCH ×6 (02:28→21:59)
[2019-05-12] MEDS: IPRATROPIUM BROM 0.5 MG/2.5ML INH SOL NEB SCH ×6 (02:28→21:59)
[2019-05-12 04:50] VITALS: BP 149/97
[2019-05-12] MEDS: BUDESONIDE (INHALATION) 0.5 MG/2 ML NEB NEB SCH ×2 (05:45→18:26)
[2019-05-12] MEDS: NEOMYCIN-BACITRACIN-POLYM 15GM TOP OINT TOP SCH ×3 (06:00→21:33)
[2019-05-12] MEDS: InsuLIN REG 1unit/0.01ml Soln (100units/ml) SC SCH ×4 (06:27→22:00)
[2019-05-12] MEDS: methylPREDNISolone SOD SUCC 125 MG/2 ML VL IV SCH (06:27)
[2019-05-12] MEDS: ACCU-CHEK COMFORT CURVE STRIP VI SCH ×4 (06:28→22:22)
--- NOTE | 2019-05-12 07:20 | NUR ---
RT NOTE: PT REQUESTED TO BE TAKEN OFF OF CPAP AT THIS TIME. PT TOLERATED WELL. PT IS ON RA, SPO2 96%, RR 18, HR 72. WILL CONTINUE TO MONITOR PT.
--- NOTE | 2019-05-12 07:24 | NUR ---
Opening Shift Note Received report and assumed care of patient. Patient is alert, oriented and able to make needs known. No sign or symptoms of distress noted. Patient complains of low back pain 10/10. Instructed on patient on plan of care POC and instructed to call for assistance as needed. Will continue to monitor.
[2019-05-12 07:26] LABS: Potassium 5.2 mmol/L (3.5-5.1)
[2019-05-12 07:30] LABS: BUN/Creatinine Ratio 28.8
[2019-05-12 08:00] VITALS: BP 150/94
[2019-05-12] MEDS: FERROUS SULFATE 325 MG TAB PO SCH ×2 (08:18→17:34)
[2019-05-12 09:00] VITALS: BP 147/101
[2019-05-12] MEDS: FAMOTIDINE 20 MG TAB PO SCH (09:06)
[2019-05-12] MEDS: THIAMINE HCL 100 MG TAB PO SCH (09:07)
[2019-05-12] MEDS: HYDROcodone-ACET 5/325MG TAB PO PRN ×2 (09:07→22:23)
[2019-05-12] MEDS: amLODIPine BESYLATE 5 MG TAB PO SCH (09:07)
[2019-05-12] MEDS: FOLIC ACID 1 MG TAB PO SCH (09:07)
[2019-05-12] MEDS: CARBAMIDE PEROXIDE 6.5% OTIC(EAR) SOLN 15ML EACH EAR SCH ×2 (09:08→21:33)
[2019-05-12] MEDS: ENOXAPARIN SOD 40 MG/0.4 ML SYRINGE SC SCH (09:08)
[2019-05-12] MEDS: [UNRECOGNIZED DRUG - OTHER] PO SCH ×2 (10:00→21:34)
[2019-05-12] MEDS: VILANTEROL PO SCH ×2 (10:00→21:34)
[2019-05-12] MEDS: UMECLIDINIUM PO SCH ×2 (10:00→21:34)
[2019-05-12] MEDS ORDERED: FUROSEMIDE 40 MG/4 ML VIAL IV ONE (10:15)
[2019-05-12] MEDS ORDERED: predniSONE 20 MG TAB PO ONE (10:30)
[2019-05-12] MEDS: LORazepam 0.5 MG TAB PO PRN (11:16)
[2019-05-12 13:00] VITALS: BP 143/101
--- NOTE | 2019-05-12 13:24 | NUR ---
Rounds Patient is sitting on bed, finished lunch. No signs or symptoms of distress noted, no complaints of pain at this time. Will continue to monitor.
--- NOTE | 2019-05-12 14:00 | NUR ---
PT CONTINUE STABLE, NO DISTRESS, PATIENT STATED< I AM STILL LOOKING FOR APARTMENT TO RENT OUT> CONTINUE STABLE, NO DISTRESS NOTED
[2019-05-12 17:00] VITALS: BP 150/97
--- NOTE | 2019-05-12 17:52 | NUR ---
PT CONTINUE REFUSING TO TAKE INSULIN
--- NOTE | 2019-05-12 18:08 | NUR ---
PT CONTINUE STABLE, CONTINUE MONITORING
--- NOTE | 2019-05-12 19:30 | NUR ---
Opening Shift Note Report received from day shift RN. Assumed care of patient. Patient lying in bed awake and alert x4. No S/S of distress/SOB noted. Patient states having abdominal pain. Will medicate as ordered. Instructed on POC and to call for assist PRN. Call light left within reach. Will continue to monitor for changes Q1hr and PRN.
[2019-05-12] MEDS: TEMAZEPAM 15 MG CAP PO PRN (21:34)
[2019-05-12] MEDS: ONDANSETRON HCL 4 MG/2 ML VIAL IV PRN (21:36)
--- NOTE | 2019-05-12 21:58 | NUR ---
PT STATED THAT HE ISN'T FEELING WELL AND THAT HE DOESN'T WANT CPAP AT THIS TIME, AND THAT HE MIGHT PUT IT ON AT HIS 0200 SCHEDULED MED NEB TX. PT UNDERSTANDS TO HAVE RT PAGED IF HE CHANGED HIS MIND AND WANTED TO BE PLACED ON CPAP.
[2019-05-12 22:00] VITALS: BP 138/83
--- NOTE | 2019-05-12 22:00 | NUR ---
Patient refused Insulin for a blood glucose level of 322. Patient stated he does not need it at this time. Patient educated and still continued to refuse.
--- NOTE | 2019-05-13 00:31 | NUR ---
Patient refuses CPAP machine until 0200. Placed patient on 2L O2 via NC. Patient's O2 level drops into 84-93% if not using O2 while sleeping.
[2019-05-13] MEDS: IPRATROPIUM BROM 0.5 MG/2.5ML INH SOL NEB SCH ×6 (02:18→22:24)
[2019-05-13] MEDS: ALBUTEROL SULF 2.5 MG/0.5ML(0.5%) NEB SOLN NEB SCH ×6 (02:18→22:24)
[2019-05-13 05:51] VITALS: BP 128/82
[2019-05-13] MEDS: ACCU-CHEK COMFORT CURVE STRIP VI SCH ×2 (06:31→11:50)
[2019-05-13] MEDS: NEOMYCIN-BACITRACIN-POLYM 15GM TOP OINT TOP SCH ×3 (06:31→20:34)
[2019-05-13] MEDS: InsuLIN REG 1unit/0.01ml Soln (100units/ml) SC SCH ×2 (06:32→11:30)
[2019-05-13 09:00] VITALS: BP 129/82
[2019-05-13] MEDS: ONDANSETRON HCL 4 MG/2 ML VIAL IV PRN (09:36)
[2019-05-13] MEDS: THIAMINE HCL 100 MG TAB PO SCH (09:37)
[2019-05-13] MEDS: predniSONE 20 MG TAB PO SCH (09:37)
[2019-05-13] MEDS: amLODIPine BESYLATE 5 MG TAB PO SCH (09:37)
[2019-05-13] MEDS: FOLIC ACID 1 MG TAB PO SCH (09:37)
[2019-05-13] MEDS: FERROUS SULFATE 325 MG TAB PO SCH ×2 (09:37→18:05)
[2019-05-13] MEDS: CARBAMIDE PEROXIDE 6.5% OTIC(EAR) SOLN 15ML EACH EAR SCH ×2 (09:38→20:34)
[2019-05-13] MEDS: [UNRECOGNIZED DRUG - OTHER] PO SCH (09:38)
[2019-05-13] MEDS: UMECLIDINIUM PO SCH (09:38)
[2019-05-13] MEDS: FAMOTIDINE 20 MG TAB PO SCH (09:38)
[2019-05-13] MEDS: VILANTEROL PO SCH (09:38)
[2019-05-13] MEDS: ENOXAPARIN SOD 40 MG/0.4 ML SYRINGE SC SCH (09:39)
[2019-05-13] MEDS ORDERED: AML5T PO (09:41)
[2019-05-13] MEDS: BUDESONIDE (INHALATION) 0.5 MG/2 ML NEB NEB SCH ×2 (09:58→19:10)
[2019-05-13 13:00] VITALS: BP 126/84
[2019-05-13] MEDS ORDERED: DEXT1SYP9 PO (13:42)
[2019-05-13] MEDS ORDERED: POM PO (13:42)
--- NOTE | 2019-05-13 14:52 | NUR ---
Nutrition Follow-up Notes Wt.: 106.5 kg as of yesterday. Pt's asleep, on oxygen via nasal cannula, no signs of distress noted earlier, currently on Regular diet with adequate PO intake aeb 90% ave. consumed meals (x6) in last 2.5 days. Est. Needs ABW [id number] kcal (23-25 kcal/kgBW), 97-106 gms pro (1.0-1.1 gms/kgBW). Will continue to monitor pertinent labs and reassess nutrient need prn Labs: POC Gluc 103 wnl; 05/12/19 Gluc 151 H, Na 134 L, BUN K 5.2 H, BUN 23 H, Ca 8.0 L Skin: Quan scale 20, low risk, skin intact per RN doc per business database analyst. GI: Pt had 1 BM yesterday per business database analyst. PES: Altered nutrition related lab values r/t current/chronic medical condition aeb hyperglycemia, hypocalcemia Obesity r/t food intake more than body requirement aeb 133% IBW, BMI 32.2 kg/m2 and increased body adiposity. Will continue to monitor PO intake, pertinent labs, skin status and weight trends. F/u in 3 to 5 days. Rec: 1.) If gluc level remains consistently elev., consider Consistent High. Carb: 75 gms/meal diet. 2.) Continue close supervision with meals. 3.) Refer to CDE/RD for further nutrition educ. and weight monitoring upon discharge. 4.) Continue current plan of care.
[2019-05-13 17:00] VITALS: BP 149/92
[2019-05-13] MEDS: LORazepam 0.5 MG TAB PO PRN (18:05)
[2019-05-13] MEDS: HYDROcodone-ACET 5/325MG TAB PO PRN (20:34)
[2019-05-13] MEDS: TEMAZEPAM 15 MG CAP PO PRN (20:34)
--- NOTE | 2019-05-13 20:45 | NUR ---
Opening Shift Note Assumed care of patient, awake and alert. No S/S of distress/SOB, still with wheezing, kept on 2L O2 via NC, O2sat sat is 98%. Patient already verbalized he does not want to use cpap tonight. Patient c/o back pain, given norco as ordered. Instructed on POC and to call for assist PRN, will continue to monitor for changes Q1hr and PRN.
[2019-05-13 21:41] VITALS: BP 135/80
--- NOTE | 2019-05-13 22:26 | NUR ---
PT DOES NOT WANT TO WEAR CPAP TONIGHT. PT ALSO REQUESTED TO SKIP 0200 MED NEB TX. PT IS AWARE TO PAGE IF HE WAKES UP SOB AND TX OR CPAP NEEDED.
[2019-05-14] MEDS: IPRATROPIUM BROM 0.5 MG/2.5ML INH SOL NEB SCH ×6 (00:11→22:19)
[2019-05-14] MEDS: ALBUTEROL SULF 2.5 MG/0.5ML(0.5%) NEB SOLN NEB SCH ×6 (00:11→22:19)
[2019-05-14] MEDS: HYDROcodone-ACET 5/325MG TAB PO PRN (04:17)
[2019-05-14 04:46] VITALS: BP 131/83
[2019-05-14] MEDS: NEOMYCIN-BACITRACIN-POLYM 15GM TOP OINT TOP SCH ×3 (06:16→22:17)
--- NOTE | 2019-05-14 07:30 | NUR ---
Opening Shift Note Assumed care of patient, awake and alert. No S/S of distress/SOB or pain. Instructed on POC and to call for assist PRN, will continue to monitor for changes Q1hr and PRN.
[2019-05-14] MEDS: FERROUS SULFATE 325 MG TAB PO SCH ×2 (08:30→18:20)
[2019-05-14] MEDS: MULTIPLE VITAMINS W/ MINERALS TAB PO SCH (08:53)
[2019-05-14] MEDS: predniSONE 20 MG TAB PO SCH (08:53)
[2019-05-14] MEDS: CARBAMIDE PEROXIDE 6.5% OTIC(EAR) SOLN 15ML EACH EAR SCH ×2 (08:55→22:16)
[2019-05-14 09:00] VITALS: BP 144/90
[2019-05-14] MEDS: ENOXAPARIN SOD 40 MG/0.4 ML SYRINGE SC SCH (10:00)
[2019-05-14] MEDS: amLODIPine BESYLATE 5 MG TAB PO SCH (10:00)
[2019-05-14] MEDS ORDERED: VILANTEROL PO SCH (10:00)
[2019-05-14] MEDS: FAMOTIDINE 20 MG TAB PO SCH (10:00)
[2019-05-14] MEDS ORDERED: UMECLIDINIUM PO SCH (10:00)
--- NOTE | 2019-05-14 10:00 | NUR ---
REFUSED BP MEDS PT STATED THAT HIS BP WAS ELEVATED DUE TO USE OF STEROIDS. ACCORDING TO PT, HE STOPPED TAKING THE STEROIDS AND HIS BP SHOULD COME BACK TO NORMAL SOON.
[2019-05-14] MEDS: BUDESONIDE (INHALATION) 0.5 MG/2 ML NEB NEB SCH ×2 (10:56→17:59)
[2019-05-14 13:00] VITALS: BP 146/94
--- NOTE | 2019-05-14 16:36 | NUR ---
Rounds Patient awake and alert. No S/S of distress/SOB or pain. Will continue to monitor changes q1hr and PRN.
[2019-05-14 16:47] VITALS: BP 136/86
[2019-05-14] MEDS ORDERED: AZITHROMYCIN 500MG/ 250ML 250 ML IV ONE (18:00)
--- NOTE | 2019-05-14 18:08 | NUR ---
DR LUCIANO AWARE OF PT'S REFUSAL TO TAKE SOME OF HIS MEDS AND USE OF CPAP.
--- NOTE | 2019-05-14 18:40 | NUR ---
SPOKE TO [facility] [employer]. UPDATED WITH PT'S PLAN OF CARE AND STATUS.
--- NOTE | 2019-05-14 20:30 | NUR ---
RECEIVE BED NO VOICED COMPLAINTS BUT WANTS 2 YUMIKO BECK
[2019-05-14 22:00] VITALS: BP 138/82
--- NOTE | 2019-05-15 | NUR ---
IV INFILTRATED REFUSE TO HAVE IV INSERTED
[2019-05-15] MEDS: IPRATROPIUM BROM 0.5 MG/2.5ML INH SOL NEB SCH ×6 (02:00→22:12)
[2019-05-15] MEDS: ALBUTEROL SULF 2.5 MG/0.5ML(0.5%) NEB SOLN NEB SCH ×6 (02:00→22:12)
--- NOTE | 2019-05-15 02:00 | NUR ---
PT REFUSED MN TX
[2019-05-15 05:00] VITALS: BP 123/82
[2019-05-15 05:43] LABS: Hemoglobin 12.5 g/dL (13.5-17.5); Platelet Count (auto) 207 10^3/uL (140-450)
[2019-05-15 05:45] LABS: Mean Corpuscular Hemoglobin 22.1 pg (28.0-32.0); Mean Corpuscular Hgb Conc. 31.3 g/dL (32.0-36.0); Mean Corpuscular Volume 70.7 fL (80.0-100.0); Red Blood Cells 5.66 10^6/uL (4.5-5.90); Red Cell Distribution Width 19.5 % (11.8-14.3); White Blood Cell 13.4 10^3/uL (4.4-10.8)
[2019-05-15 05:52] LABS: Band Neutrophils % (manual) 0; Basophils % (manual) 0 (0.0-2.0); Blast Cells 0; Eosinophils % (manual) 0 (0-7); Metamyelocytes % 0; Myelocytes % 0; Promyelocytes % 0; Reactive Lymphocytes 0
[2019-05-15 05:56] LABS: BUN/Creatinine Ratio 24.4; Calcium 7.8 mg/dL (8.5-10.1); Potassium 4.8 mmol/L (3.5-5.1)
[2019-05-15] MEDS: NEOMYCIN-BACITRACIN-POLYM 15GM TOP OINT TOP SCH ×3 (06:00→22:00)
[2019-05-15 08:37] LABS: Lymphocytes % (manual) 20 (10.0-50.0); Monocytes % (manual) 8 (0-12)
[2019-05-15] MEDS: predniSONE 20 MG TAB PO SCH (08:40)
[2019-05-15] MEDS: MULTIPLE VITAMINS W/ MINERALS TAB PO SCH (08:40)
[2019-05-15] MEDS: FAMOTIDINE 20 MG TAB PO SCH (08:40)
[2019-05-15] MEDS: FERROUS SULFATE 325 MG TAB PO SCH ×2 (08:40→18:23)
[2019-05-15 09:00] VITALS: BP 137/82
[2019-05-15] MEDS: BUDESONIDE (INHALATION) 0.5 MG/2 ML NEB NEB SCH ×2 (09:00→18:08)
[2019-05-15] MEDS: ENOXAPARIN SOD 40 MG/0.4 ML SYRINGE SC SCH (10:00)
[2019-05-15] MEDS: amLODIPine BESYLATE 5 MG TAB PO SCH (10:00)
[2019-05-15] MEDS: CARBAMIDE PEROXIDE 6.5% OTIC(EAR) SOLN 15ML EACH EAR SCH ×2 (10:00→22:00)
--- NOTE | 2019-05-15 11:20 | NUR ---
IV insertion IV access obtained, via clean sterile technique by inserting 20 gauge catheter at RIGHT FOREARM after 1 attempt(s). IV secured properly. No trauma to site. Patient tolerated well. NOTE: .
[2019-05-15] MEDS: AZITHROMYCIN 500MG/ 250ML 250 ML IV SCH (11:25)
[2019-05-15 13:00] VITALS: BP 116/70
[2019-05-15 18:04] VITALS: BP 147/84
[2019-05-15] MEDS: HYDROcodone-ACET 5/325MG TAB PO PRN (18:44)
--- NOTE | 2019-05-15 20:08 | NUR ---
RECEIVE IN BED SKIN WARM AND DRY IS LOOKING FORWARD TO BE DISCHARGEDTOMORROW
[2019-05-15 22:00] VITALS: BP 132/86
--- NOTE | 2019-05-15 22:07 | NUR ---
Respiratory note: TX GIVEN, TOLERATED WELL. PT STATES HE DOES NOT WANT HIS 0200 TX, WILL TAKE THE NEXT ONE IN THE MORNING. PT AWARE TO CALL IF HE BECOMES SOB.
[2019-05-16] MEDS: ALBUTEROL SULF 2.5 MG/0.5ML(0.5%) NEB SOLN NEB SCH ×3 (01:35→09:52)
[2019-05-16] MEDS: IPRATROPIUM BROM 0.5 MG/2.5ML INH SOL NEB SCH ×3 (01:35→09:52)
[2019-05-16] MEDS: HYDROcodone-ACET 5/325MG TAB PO PRN ×2 (04:53→10:49)
[2019-05-16 05:00] VITALS: BP 139/90
[2019-05-16] MEDS: NEOMYCIN-BACITRACIN-POLYM 15GM TOP OINT TOP SCH (06:00)
[2019-05-16 06:35] LABS: Eosinophils # (auto) 0.1 uL; Hemoglobin 12.4 g/dL (13.5-17.5); Mean Corpuscular Hemoglobin 22.1 pg (28.0-32.0); Neutrophils # (auto) 7.9 uL
[2019-05-16 06:37] LABS: Basophils # (auto) 0.1 uL; Basophils % (auto) 0.5 % (0.0-2.0); Eosinophils % (auto) 0.7 % (0.0-7.0); Hematocrit 39.3 % (41.0-53.0); Lymphocytes # (auto) 2.8 uL; Lymphocytes % (auto) 23.6 % (10.0-50.0); Mean Corpuscular Hgb Conc. 31.5 g/dL (32.0-36.0); Mean Corpuscular Volume 70.1 fL (80.0-100.0); Monocytes # (auto) 0.9 uL; Monocytes % (auto) 7.6 % (0.0-12.0); Neutrophils % (auto) 67.6 % (37.0-80.0); Platelet Count (auto) 211 10^3/uL (140-450); Red Cell Distribution Width 19.6 % (11.8-14.3); White Blood Cell 11.7 10^3/uL (4.4-10.8)
[2019-05-16 07:01] LABS: BUN/Creatinine Ratio 24.4; Calcium 7.9 mg/dL (8.5-10.1); Potassium 4.5 mmol/L (3.5-5.1)
[2019-05-16] MEDS: FERROUS SULFATE 325 MG TAB PO SCH (08:00)
[2019-05-16] MEDS: BUDESONIDE (INHALATION) 0.5 MG/2 ML NEB NEB SCH (09:51)
[2019-05-16] MEDS: ENOXAPARIN SOD 40 MG/0.4 ML SYRINGE SC SCH (10:00)
[2019-05-16] MEDS: CARBAMIDE PEROXIDE 6.5% OTIC(EAR) SOLN 15ML EACH EAR SCH (10:00)
[2019-05-16 10:10] VITALS: BP 152/99
[2019-05-16] MEDS: AZITHROMYCIN 500MG/ 250ML 250 ML IV SCH (10:25)
[2019-05-16] MEDS: predniSONE 20 MG TAB PO SCH (10:25)
[2019-05-16] MEDS: MULTIPLE VITAMINS W/ MINERALS TAB PO SCH (10:25)
[2019-05-16] MEDS: FAMOTIDINE 20 MG TAB PO SCH (10:26)
[2019-05-16] MEDS: amLODIPine BESYLATE 5 MG TAB PO SCH (10:26)
--- NOTE | 2019-05-16 10:45 | NUR ---
refused to complete iv antibiotic. in a lozaad to leave, explained to patient discharge papers not ready yet. discharge medications hand delivered by Dr Saeed. Patient currently does not have primary care provider, but said will get one once discharge.
[2019-05-16 10:47] VITALS: BP 130/84
--- NOTE | 2019-05-16 12:32 | NUR ---
Discharge instructions given as ordered. Encourage to follow up with PMD as instructed. All questions and concerns addressed. Patient verbalized understanding. Medication reconciliation form completed and copy given to patient. IV removed with catheter intact, pressure dressing applied. ALL BELONGING ACCOUNTED FOR PER PATIENT, REFUSED TO SIGN BELONGING FORM. No distress noted at time of departure. LEFT AMBULATORY, REFUSED WHEELCHAIR OR STAFF ASSISTANCE.
== END 2019-05-16 15:06 | disposition home or self-care (01) | DRG 133 ==
LOC: ER 22:30 → TELE 22:31 → EDBD 22:31 → TELE-EAST 05-02 09:42 → EAST 05-09 12:11
PROVIDERS: ADMIT Nurse Practitioner Acute Care; ATTEND Internal Medicine
PROC: 5A09357 Assistance with Respiratory Ventilation, Less than 24 Consecutive Hours, Continuous Positive Airway Pressure (ICD-10-PCS; principal; 2019-05-02)
PROC: 5A09357 Assistance with Respiratory Ventilation, Less than 24 Consecutive Hours, Continuous Positive Airway Pressure (ICD-10-PCS; 2019-05-11)
PROC: 5A09357 Assistance with Respiratory Ventilation, Less than 24 Consecutive Hours, Continuous Positive Airway Pressure (ICD-10-PCS; 2019-05-12)
DX: J96.20 Acute and chronic respiratory failure, unspecified whether with hypoxia or hypercapnia (principal); G92 Toxic encephalopathy; J44.0 Chronic obstructive pulmonary disease with (acute) lower respiratory infection; E66.01 Morbid (severe) obesity due to excess calories; J45.901 Unspecified asthma with (acute) exacerbation; E87.1 Hypo-osmolality and hyponatremia; E87.5 Hyperkalemia; Z99.81 Dependence on supplemental oxygen; I11.9 Hypertensive heart disease without heart failure; J20.9 Acute bronchitis, unspecified; J44.1 Chronic obstructive pulmonary disease with (acute) exacerbation; D50.9 Iron deficiency anemia, unspecified; T38.0X5A Adverse effect of glucocorticoids and synthetic analogues, initial encounter; R73.9 Hyperglycemia, unspecified; G47.00 Insomnia, unspecified; F10.229 Alcohol dependence with intoxication, unspecified; Y90.9 Presence of alcohol in blood, level not specified; E87.6 Hypokalemia; F17.210 Nicotine dependence, cigarettes, uncomplicated; M54.5 Low back pain; G89.29 Other chronic pain; Z68.31 Body mass index [BMI] 31.0-31.9, adult; Y92.89 Other specified places as the place of occurrence of the external cause; Z71.6 Tobacco abuse counseling; Z79.899 Other long term (current) drug therapy
CPT/HCPCS: 36415; 36600; 71045; 71046; 80048; 80053; 80307; 80320; 80329; 81001; 82805; 82962; 83036; 83540; 83550; 83735; 83880; 84132; 84484; 85007; 85025; 85027; 87040; 87070; 87086; 87205; 87804; 93005; 93306; 93971; 94640; 94660; 96361; 96365; 96375; G0378; J0696; J1815; J2405

== ENCOUNTER 2019-07-01 23:24 | Inpatient (IN) | payer OTHER ==
[~2019-07-01] VITALS: Ht 177.8 cm; Wt 91.3 kg
[~2019-07-01 23:24] MED LIST: AML5T PO; DEXT1SYP9 PO; POM PO; TRAZ150T79 PO
[2019-07-01] MEDS ORDERED: ALBUTEROL SULF 2.5 MG/0.5ML(0.5%) NEB SOLN NEB ONE (23:45)
[2019-07-01] MEDS ORDERED: methylPREDNISolone SOD SUCC 125 MG/2 ML VL IV ONE (23:45)
[2019-07-01] MEDS ORDERED: IPRATROPIUM BROM 0.5 MG/2.5ML INH SOL NEB ONE (23:45)
[2019-07-01] MEDS ORDERED: cefTRIAXone 1GM/50ML D5W 50 ML IV ONE (23:45)
[2019-07-01] MEDS ORDERED: ONDANSETRON HCL 4 MG/2 ML VIAL IV ONE (23:45)
[2019-07-02] VITALS (7 sets, daily range): BP systolic 118–140; BP diastolic 72–84
[2019-07-02 00:21] LABS: Lymphocytes # (auto) 2.2 uL; Neutrophils # (auto) 3.8 uL; Nucleated Red Blood Cells % 0.1 %
[2019-07-02 00:23] LABS: Basophils # (auto) 0.1 uL; Basophils % (auto) 0.7 % (0.0-2.0); Eosinophils # (auto) 0.6 uL; Eosinophils % (auto) 8.5 % (0.0-7.0); Hematocrit 36.8 % (41.0-53.0); Hemoglobin 11.9 g/dL (13.5-17.5); Lymphocytes % (auto) 29.2 % (10.0-50.0); Mean Corpuscular Hemoglobin 23.5 pg (28.0-32.0); Mean Corpuscular Hgb Conc. 32.3 g/dL (32.0-36.0); Mean Corpuscular Volume 72.9 fL (80.0-100.0); Monocytes # (auto) 0.9 uL; Monocytes % (auto) 11.5 % (0.0-12.0); Neutrophils % (auto) 50.1 % (37.0-80.0); Platelet Count (auto) 226 10^3/uL (140-450); Red Blood Cells 5.05 10^6/uL (4.5-5.90); White Blood Cell 7.6 10^3/uL (4.4-10.8)
[2019-07-02 00:24] LABS: Red Cell Distribution Width 25.7 % (11.8-14.3)
[2019-07-02] MEDS ORDERED: FUROSEMIDE 20 MG/2 ML VIAL IV ONE (00:30)
[2019-07-02 00:39] LABS: Alanine Aminotransferase 45 U/L (16-61); Albumin 3.2 g/dL (3.4-5.0); Anion Gap 12 (5-15); Aspartate Aminotransferase 22 U/L (15-37); BUN/Creatinine Ratio 11.7; Blood Urea Nitrogen 13 mg/dL (7-18); Calcium 7.6 mg/dL (8.5-10.1); Carbon Dioxide 22 mmol/L (21-32); Chloride 105 mmol/L (98-107); GFR African American 88 mL/min; GFR Non-African American 73 mL/min; Glucose 109 mg/dL (74-106); Magnesium 2.5 mg/dL (1.6-2.6); Potassium 3.5 mmol/L (3.5-5.1); Sodium 139 mmol/L (136-145)
[2019-07-02 01:13] LABS: Alkaline Phosphatase 89 U/L (45-117); Bilirubin, Total 0.4 mg/dL (0.2-1.0)
[2019-07-02 01:43] LABS: INR 0.97 (0.9-1.15); Partial Thromboplastin Time 26.3 sec (23.64-32.05)
[2019-07-02] MEDS ORDERED: DOCUSATE SOD 100 MG CAP PO PRN (04:00)
[2019-07-02] MEDS ORDERED: HYDROcodone-ACET 5/325MG TAB PO PRN (04:00)
[2019-07-02] MEDS ORDERED: ACETAMINOPHEN 325 MG TAB PO PRN (04:00)
[2019-07-02] MEDS ORDERED: ALUM & MAG HYDROX-SIMETH LIQ(MAALOX) 30 ML PO PRN (04:00)
--- NOTE | 2019-07-02 05:18 | NUR ---
Admission Note Pt admitted to room 290-A and observed pt amb from stretcher to bed. Pt then started going through his luggage/bag and states that, " I have to get organized before I can lay down or get into the bed. " Pt states this while SOB and with pursed lip breathing. Encouraged pt to get into bed and pt refuses. Pt is non compliant and agitated. Pt states , " Lady, I have been living with problem for years and I will be fine." Assisted pt to find his phone dredgemaster and then pt got into bed. Pt oriented to room and procedures and POC discussed with pt. Pt verbalizes understanding but then changes the subject very fast to asking for food and drinks. Pt appears to have flight of ideas and his mood and facial expressions changes drastically in just minutes or even seconds. While taking pt admission hx pt reports that he suffers from PTSD and has a past incident of suicide attempt 1 yr ago. Pt noted to have large lineal scars on his left forearm. Bed is low, wheels are locked, and call light is with in reach.
[2019-07-02] MEDS: ALBUTEROL SULF 2.5 MG/0.5ML(0.5%) NEB SOLN NEB PRN ×3 (06:47→14:18)
[2019-07-02] MEDS: IPRATROPIUM BROM 0.5 MG/2.5ML INH SOL NEB PRN ×3 (06:47→14:18)
--- NOTE | 2019-07-02 06:47 | NUR ---
Respiratory note: Received pt already off BIPAP. Pt laying comfortably in bed, no s/s of acute respiratory distress noted. Pt says he does feel slightly SOB but does not want to go on BIPAP at this time because he just ate. HR 107, RR 20, POX 97% on 3L nasal cannula. Breath sounds I/E wheezing. Medneb tx given, pt tolerated well, no adverse reactions noted. Advised pt to call for RT if needed. Will continue to monitor.
[2019-07-02] MEDS ORDERED: HYDR-531 PO (07:01)
[2019-07-02] MEDS ORDERED: APIX5TAB PO (07:01)
--- NOTE | 2019-07-02 07:43 | NUR ---
RECEIVED REPORT FROM NIGHT NURSE. PATIENT RESTING IN BED, NO DISTRESS NOTED. WILL CONTINUE TO MONITOR.
[2019-07-02] MEDS: methylPREDNISolone SOD SUCC 40 MG/ML VL IV SCH ×2 (10:48→21:49)
[2019-07-02] MEDS ORDERED: THIAMINE HCL 100 MG TAB PO ONE (15:15)
[2019-07-02] MEDS ORDERED: FOLIC ACID 1 MG TAB PO ONE (15:15)
[2019-07-02] MEDS ORDERED: amLODIPine BESYLATE 5 MG TAB PO ONE (15:15)
[2019-07-02] MEDS: LORazepam 0.5 MG TAB PO PRN (16:02)
[2019-07-02] MEDS: HYDROcodone-ACET 10/325MG TAB PO PRN ×2 (16:28→22:02)
[2019-07-02] MEDS: chlordiazePOXIDE HCL 5 MG CAP PO SCH ×2 (17:53→21:49)
[2019-07-02] MEDS: IPRATROPIUM BROM 0.5 MG/2.5ML INH SOL NEB SCH (18:52)
[2019-07-02] MEDS: ALBUTEROL SULF 2.5 MG/0.5ML(0.5%) NEB SOLN NEB SCH (18:52)
[2019-07-02] MEDS: BUDESONIDE (INHALATION) 0.5 MG/2 ML NEB NEB SCH (18:53)
--- NOTE | 2019-07-02 20:40 | NUR ---
open note assumed care of pt. upon entering room pt awake, alert and oriented x4. pt on room air no distress noted. pt denies any pain at this time. pt updated on plan of care, no questions. pt bed locked, low and 2x rails up. pt call light in reach, will round q1hr and prn.
[2019-07-02] MEDS: APIXABAN 5 MG TAB PO SCH (21:49)
[2019-07-02] MEDS ORDERED: traZODone HCL 50 MG TAB PO SCH (22:00)
[2019-07-02] MEDS: cefTRIAXone 1GM/50ML D5W 50 ML IV SCH (22:01)
--- NOTE | 2019-07-02 22:50 | NUR ---
Respiratory note: PT REFUSING TO WEAR BIPAP TONIGHT. PT STATES HE FEELS OKAY WITHOUT IT. HR 94, RR 18, SPO2 100% ON 3L NC. NO SIGNS OF ANY RESPIRATORY DISTRESS NOTED. EDUCATED PT ON THE BENEFITS ON WEARING THE BIPAP. ADVISED PT TO CALL IF HE CHANGES HIS MIND.
[2019-07-03] MEDS: ALBUTEROL SULF 2.5 MG/0.5ML(0.5%) NEB SOLN NEB SCH ×4 (00:51→18:13)
[2019-07-03] MEDS: IPRATROPIUM BROM 0.5 MG/2.5ML INH SOL NEB SCH ×4 (00:51→18:13)
[2019-07-03] MEDS: HYDROcodone-ACET 10/325MG TAB PO PRN ×2 (04:56→20:50)
[2019-07-03 05:00] VITALS: BP 121/70
[2019-07-03] MEDS: chlordiazePOXIDE HCL 5 MG CAP PO SCH ×4 (06:24→22:53)
[2019-07-03] MEDS: BUDESONIDE (INHALATION) 0.5 MG/2 ML NEB NEB SCH ×2 (06:40→18:13)
[2019-07-03 06:59] LABS: Basophils # (auto) 0 uL; Basophils % (auto) 0.1 % (0.0-2.0); Eosinophils # (auto) 0 uL; Hemoglobin 10.9 g/dL (13.5-17.5); Lymphocytes # (auto) 0.7 uL; Nucleated Red Blood Cells % 0.1 %
[2019-07-03 07:06] LABS: Hematocrit 33.5 % (41.0-53.0); Lymphocytes % (auto) 6.2 % (10.0-50.0); Mean Corpuscular Hemoglobin 23.8 pg (28.0-32.0); Mean Corpuscular Hgb Conc. 32.5 g/dL (32.0-36.0); Mean Corpuscular Volume 73.2 fL (80.0-100.0); Monocytes # (auto) 0.4 uL; Monocytes % (auto) 3.6 % (0.0-12.0); Neutrophils # (auto) 10.9 uL; Neutrophils % (auto) 90.1 % (37.0-80.0); Platelet Count (auto) 198 10^3/uL (140-450); Red Blood Cells 4.57 10^6/uL (4.5-5.90); White Blood Cell 12.1 10^3/uL (4.4-10.8)
[2019-07-03 07:09] LABS: Red Cell Distribution Width 25.5 % (11.8-14.3)
[2019-07-03 07:36] LABS: BUN/Creatinine Ratio 15.7; Calcium 7.9 mg/dL (8.5-10.1); Potassium 4.7 mmol/L (3.5-5.1)
--- NOTE | 2019-07-03 07:45 | NUR ---
RECEIVED REPORT FROM NIGHT NURSE. PATIENT RESTING IN BED, NO DISTRESS NOTED. WILL CONTINUE TO MONITOR.
[2019-07-03 09:00] VITALS: BP 117/89
[2019-07-03] MEDS: methylPREDNISolone SOD SUCC 40 MG/ML VL IV SCH ×2 (10:25→22:53)
[2019-07-03] MEDS: LORazepam 0.5 MG TAB PO PRN (10:25)
[2019-07-03] MEDS: APIXABAN 5 MG TAB PO SCH ×2 (10:26→22:53)
[2019-07-03] MEDS: THIAMINE HCL 100 MG TAB PO SCH (10:26)
[2019-07-03] MEDS: amLODIPine BESYLATE 5 MG TAB PO SCH (10:26)
[2019-07-03] MEDS: FOLIC ACID 1 MG TAB PO SCH (10:27)
[2019-07-03] MEDS ORDERED: FAMOTIDINE 20 MG TAB PO ONE (10:45)
[2019-07-03 13:00] VITALS: BP 153/97
[2019-07-03 17:00] VITALS: BP 126/76
--- NOTE | 2019-07-03 20:00 | NUR ---
open note assumed care of pt. upon entering room pt awake, alert and oriented x4. no distress noted or expressed. pt updated no plan of care, no questions at this time. pt requests to move to bed near window, this nurse will speak with charge regarding request. pt bed locked, low and 2x rails up. pt call light in reach, encouraged to call as needed. this nurse will round q1hr and prn.
[2019-07-03 22:25] VITALS: BP 135/80
[2019-07-03] MEDS: cefTRIAXone 1GM/50ML D5W 50 ML IV SCH (22:53)
[2019-07-03] MEDS: QUEtiapine FUMARATE 25 MG TAB PO SCH (22:54)
[2019-07-04] MEDS: IPRATROPIUM BROM 0.5 MG/2.5ML INH SOL NEB SCH ×4 (00:01→18:29)
[2019-07-04] MEDS: ALBUTEROL SULF 2.5 MG/0.5ML(0.5%) NEB SOLN NEB SCH ×4 (00:01→18:29)
[2019-07-04 04:50] VITALS: BP 127/84
[2019-07-04] MEDS: chlordiazePOXIDE HCL 5 MG CAP PO SCH ×4 (06:30→20:14)
[2019-07-04] MEDS: BUDESONIDE (INHALATION) 0.5 MG/2 ML NEB NEB SCH ×2 (06:50→18:29)
--- NOTE | 2019-07-04 06:50 | NUR ---
Respiratory note: PT OFF BIPAP ON 2 L NC WITH NO SIGNS OR SYMPTOMS OF RESPIRATORY DISTRESS NOTED.
--- NOTE | 2019-07-04 07:30 | NUR ---
Opening Shift Note Assumed care of patient,who is alert and oriented x4. No S/S of distress/SOB or pain. Patient is on 2L nasal cannula. Bed in lowest position with 2x side rails up for safety. Call light is within reach. Instructed on POC and to call for assist PRN, will continue to monitor for changes Q1hr and PRN.
[2019-07-04 08:00] VITALS: BP 137/85
[2019-07-04 09:00] VITALS: BP 137/85
[2019-07-04] MEDS: FAMOTIDINE 20 MG TAB PO SCH (10:20)
[2019-07-04] MEDS: THIAMINE HCL 100 MG TAB PO SCH (10:20)
[2019-07-04] MEDS: methylPREDNISolone SOD SUCC 40 MG/ML VL IV SCH ×2 (10:20→22:18)
[2019-07-04] MEDS: amLODIPine BESYLATE 5 MG TAB PO SCH (10:20)
[2019-07-04] MEDS: HYDROcodone-ACET 10/325MG TAB PO PRN ×3 (10:21→20:14)
[2019-07-04] MEDS: APIXABAN 5 MG TAB PO SCH ×2 (10:21→22:18)
[2019-07-04] MEDS: FOLIC ACID 1 MG TAB PO SCH (10:21)
--- NOTE | 2019-07-04 12:30 | NUR ---
I faxed transfer order/clinical information to [facility]-awaiting return call from Renal Dialysis Technician regarding the transfer request.
[2019-07-04 13:00] VITALS: BP 127/81
--- NOTE | 2019-07-04 15:07 | NUR ---
Called [facility] [phone] and spoke with Jennifer regarding this patient's order to transfer back in network. Per Jennifer she is not bringing the patient up in her system as being active with [facility]-she will have her business supervisor Larry give me a call back.
[2019-07-04 17:00] VITALS: BP 147/85
[2019-07-04 22:00] VITALS: BP 132/75
[2019-07-04] MEDS: TEMAZEPAM 15 MG CAP PO PRN (22:18)
[2019-07-04] MEDS: cefTRIAXone 1GM/50ML D5W 50 ML IV SCH (22:19)
[2019-07-04] MEDS: QUEtiapine FUMARATE 25 MG TAB PO SCH (22:27)
[2019-07-05] VITALS (8 sets, daily range): BP systolic 120–147; BP diastolic 80–93
--- NOTE | 2019-07-05 00:01 | NUR ---
IV started with 20 gauge , right hand 2nd attempt. Pt has numerous scars around veins. Pt irritable with several nurses. Seems pleased at this time that IV is in and he is receiving IV antibiotic.
[2019-07-05] MEDS: IPRATROPIUM BROM 0.5 MG/2.5ML INH SOL NEB SCH ×4 (00:10→19:11)
[2019-07-05] MEDS: ALBUTEROL SULF 2.5 MG/0.5ML(0.5%) NEB SOLN NEB SCH ×4 (00:10→19:11)
--- NOTE | 2019-07-05 04:07 | NUR ---
Pt has been checked q 30 minutes to 1 hour. Denies having pain. Nurse charting outside pt's door. Pt awoke, screaming at QUALITY ENGINEER that nobody is checking him. Urinal has been emptied X3. Partial linen change done, and pillow case changed, as pt perspires when he sleeps. Pt is irritable, labile. Charge Nurse, Cheli notified and security will be called if pt continues to raise his voice loudly at staff. Will continue to check on pt q 30 minutes.
[2019-07-05] MEDS: chlordiazePOXIDE HCL 5 MG CAP PO SCH ×4 (06:36→22:36)
[2019-07-05] MEDS: BUDESONIDE (INHALATION) 0.5 MG/2 ML NEB NEB SCH ×2 (06:48→19:11)
--- NOTE | 2019-07-05 07:30 | NUR ---
Opening Shift Note Assumed care of patient, who is alert and oriented x4. No S/S of distress/SOB or pain. Bed is in lowest position with 2x side rails up for safety. Call light is within reach. Instructed on POC and to call for assist PRN, will continue to monitor for changes Q1hr and PRN.
[2019-07-05] MEDS ORDERED: LORazepam 0.5 MG TAB PO PRN (10:00)
--- NOTE | 2019-07-05 10:06 | NUR ---
0945 07/05/19 Contacted Jennifer at [facility] to request authorization to be provided for patient's admission and continued stay. Unable to connect with a case management coordinator after 2 phone call attempts. Provided message stating the above on voicemail at [phone]. I also requested assistance with transferring patient back in network as ordered yesterday (faxed order yesterday, and Jennifer was going to have someone call me back regarding the request-no call received).
[2019-07-05] MEDS: HYDROcodone-ACET 10/325MG TAB PO PRN ×2 (11:02→17:36)
[2019-07-05] MEDS: FAMOTIDINE 20 MG TAB PO SCH (11:02)
[2019-07-05] MEDS: APIXABAN 5 MG TAB PO SCH ×2 (11:03→22:36)
[2019-07-05] MEDS: THIAMINE HCL 100 MG TAB PO SCH (11:03)
[2019-07-05] MEDS: FOLIC ACID 1 MG TAB PO SCH (11:03)
[2019-07-05] MEDS: amLODIPine BESYLATE 5 MG TAB PO SCH (11:03)
--- NOTE | 2019-07-05 12:02 | NUR ---
1200 07/05/19 Contacted Larry at [facility] [phone] to request assistance in transferring this patient back in network-left message and provided my contact information.
--- NOTE | 2019-07-05 13:30 | NUR ---
IV to Right Hand Patient reported that the IV to the R hand came out. Catheter is fully intact. Patient not reporting any pain at this time. Will attempt to start IV.
[2019-07-05] MEDS: methylPREDNISolone SOD SUCC 40 MG/ML VL IV SCH ×2 (17:37→22:38)
[2019-07-05] MEDS: QUEtiapine FUMARATE 25 MG TAB PO SCH (22:36)
[2019-07-06] MEDS: IPRATROPIUM BROM 0.5 MG/2.5ML INH SOL NEB SCH ×4 (00:29→19:19)
[2019-07-06] MEDS: ALBUTEROL SULF 2.5 MG/0.5ML(0.5%) NEB SOLN NEB SCH ×4 (00:29→19:19)
[2019-07-06 05:48] VITALS: BP 123/79
[2019-07-06] MEDS: chlordiazePOXIDE HCL 5 MG CAP PO SCH ×4 (06:11→22:06)
[2019-07-06] MEDS: methylPREDNISolone SOD SUCC 40 MG/ML VL IV SCH ×3 (06:13→22:06)
--- NOTE | 2019-07-06 07:15 | NUR ---
Report given to SATHYA Mckinnon. Pt continues to have loose non-productive cough. On C-Pap during noc with RT treatment. Appears to have slept majority of noc. Fine tremors noted and Librium given per order.
[2019-07-06] MEDS: BUDESONIDE (INHALATION) 0.5 MG/2 ML NEB NEB SCH ×2 (08:14→19:19)
[2019-07-06 09:00] VITALS: BP 120/90
[2019-07-06] MEDS: FOLIC ACID 1 MG TAB PO SCH (10:25)
[2019-07-06] MEDS: FAMOTIDINE 20 MG TAB PO SCH (10:25)
[2019-07-06] MEDS: amLODIPine BESYLATE 5 MG TAB PO SCH (10:26)
[2019-07-06] MEDS: APIXABAN 5 MG TAB PO SCH ×2 (10:26→22:06)
[2019-07-06] MEDS: THIAMINE HCL 100 MG TAB PO SCH (10:26)
--- NOTE | 2019-07-06 11:32 | NUR ---
Nutrition Assessment Notes please see attached link for complete assessment Est. Needs ABW 94 [id number] kcal (20-23 kcal/kgBW), 94-103 gms pro (1.0-1.1 gms/kgBW). Will continue to monitor pertinent labs and reassess nutrient need prn Addendum: 07/06/19 at [address] Amended: Links added.
[2019-07-06 13:24] VITALS: BP 126/78
--- NOTE | 2019-07-06 15:19 | NUR ---
1515 07/06/19 I received a message to call [employer]atable [employer] Laminator Kahlil [phone] regarding the status of this patient. Called provided number and left a message, no answer.
[2019-07-06 16:56] VITALS: BP 140/93
--- NOTE | 2019-07-06 17:30 | NUR ---
Call to pharmacist Call to pharmacist at this time. Anora Ellipta is still not verified. Pharmacist states that medication was held due to patient receiving other medications similar acting. Notified pharmacist that Dr. Saeed is aware and wants patient to receive other medications as well. Pharmacist will verify medication at this time.
--- NOTE | 2019-07-06 18:00 | NUR ---
Mark Gallardo Spoke with RT regarding patient's anora ellipta. Per RT, medication will be held due to contraindication with other medications.
--- NOTE | 2019-07-06 18:45 | NUR ---
Mark Gallardo Patient's medication was sent up in bullet per Darlene in pharmacy. However, medication is not in bullet or in cassette. Darlene is currently looking for the medication.
--- NOTE | 2019-07-06 19:35 | NUR ---
OPENING SHIFT NOTE ASSUMED CARE OF PATIENT AWAKE AND ALERTX4. NO S/S OF DISTRESS OR SOB. PATIENT C/O PAIN WILL MEDICATE RX BY MD. BED AT LOWEST LOCKED POSITION, SIDERAILS UPX2, CALL LIGHT WITHIN REACH. UPDATED PATIENT ON POC AND TO CALL FOR ASSISTANCE PRN, VERBALIZED UNDERSTANDING. WILL CONTINUE TO MONITOR Q1H AND PRN.
--- NOTE | 2019-07-06 19:48 | NUR ---
Closing Shift Note Patient resting in bed. No signs or symptoms of distress. Report given. Will endorse care to the terminal carman RN.
[2019-07-06 22:00] VITALS: BP 118/67
--- NOTE | 2019-07-06 22:00 | NUR ---
PHARMACY CALLED AND SAID THE PATIENTS MED IS IN HIS CASSETTE.
[2019-07-06] MEDS: HYDROcodone-ACET 10/325MG TAB PO PRN (22:05)
[2019-07-06] MEDS: QUEtiapine FUMARATE 25 MG TAB PO SCH (22:06)
[2019-07-07] MEDS: IPRATROPIUM BROM 0.5 MG/2.5ML INH SOL NEB SCH ×4 (01:07→19:01)
[2019-07-07] MEDS: ALBUTEROL SULF 2.5 MG/0.5ML(0.5%) NEB SOLN NEB SCH ×4 (01:07→19:01)
[2019-07-07] MEDS: HYDROcodone-ACET 10/325MG TAB PO PRN ×2 (04:15→08:46)
[2019-07-07 05:00] VITALS: BP 108/82
[2019-07-07] MEDS: chlordiazePOXIDE HCL 5 MG CAP PO SCH ×4 (05:30→21:48)
[2019-07-07] MEDS: methylPREDNISolone SOD SUCC 40 MG/ML VL IV SCH ×3 (05:31→21:47)
--- NOTE | 2019-07-07 08:10 | NUR ---
Opening Shift Note Assumed care of patient, awake and alert, laying in bed. No S/S of distress/SOB or pain. Instructed on POC and to call for assist PRN, will continue to monitor for changes Q1hr and PRN.
[2019-07-07 09:15] VITALS: BP 137/91
[2019-07-07] MEDS: FOLIC ACID 1 MG TAB PO SCH (09:48)
[2019-07-07] MEDS: APIXABAN 5 MG TAB PO SCH ×2 (09:48→21:48)
[2019-07-07] MEDS: THIAMINE HCL 100 MG TAB PO SCH (09:48)
[2019-07-07] MEDS: FAMOTIDINE 20 MG TAB PO SCH (09:48)
[2019-07-07] MEDS: ANORO ELLIPTA IN SCH (09:48)
[2019-07-07] MEDS: amLODIPine BESYLATE 5 MG TAB PO SCH (09:49)
--- NOTE | 2019-07-07 10:30 | NUR ---
Hospitalist Rounding Dr. Saeed at bedside.
[2019-07-07] MEDS: BUDESONIDE (INHALATION) 0.5 MG/2 ML NEB NEB SCH ×2 (11:39→19:01)
[2019-07-07 13:00] VITALS: BP 136/82
--- NOTE | 2019-07-07 15:35 | NUR ---
Ambulating Patient ambulating on unit. No obvious distress noted.
[2019-07-07 16:55] VITALS: BP 131/80
[2019-07-07] MEDS: QUEtiapine FUMARATE 25 MG TAB PO SCH (21:48)
[2019-07-07 22:00] VITALS: BP 150/96
[2019-07-08] MEDS: MORPHINE SULFATE 4 MG/ML SYR/VIAL IV PRN ×2 (00:59→01:09)
[2019-07-08] MEDS: IPRATROPIUM BROM 0.5 MG/2.5ML INH SOL NEB SCH ×5 (01:06→19:10)
[2019-07-08] MEDS: ALBUTEROL SULF 2.5 MG/0.5ML(0.5%) NEB SOLN NEB SCH ×5 (01:06→19:10)
[2019-07-08] MEDS: HYDROcodone-ACET 10/325MG TAB PO PRN ×2 (01:06→20:52)
[2019-07-08 01:51] VITALS: BP 150/96
--- NOTE | 2019-07-08 02:37 | NUR ---
Pt found off cpap, sleeping with no acute distress noted.
[2019-07-08 05:00] VITALS: BP 126/90
[2019-07-08] MEDS: methylPREDNISolone SOD SUCC 40 MG/ML VL IV SCH (05:27)
[2019-07-08] MEDS: BUDESONIDE (INHALATION) 0.5 MG/2 ML NEB NEB SCH ×2 (07:41→19:10)
--- NOTE | 2019-07-08 08:00 | NUR ---
Opening Shift Note Assumed care of patient, awake and alert, sitting up at side of bed having breakfast. No S/S of distress/SOB or pain. Instructed on POC and to call for assist PRN, will continue to monitor for changes Q1hr and PRN.
[2019-07-08 08:58] VITALS: BP 152/91
[2019-07-08] MEDS: FAMOTIDINE 20 MG TAB PO SCH (09:50)
[2019-07-08] MEDS: THIAMINE HCL 100 MG TAB PO SCH (09:50)
[2019-07-08] MEDS: FOLIC ACID 1 MG TAB PO SCH (09:50)
[2019-07-08] MEDS: APIXABAN 5 MG TAB PO SCH ×2 (09:50→22:11)
[2019-07-08] MEDS: amLODIPine BESYLATE 5 MG TAB PO SCH (09:51)
[2019-07-08] MEDS: ANORO ELLIPTA IN SCH (09:51)
[2019-07-08] MEDS ORDERED: chlordiazePOXIDE HCL 5 MG CAP PO PRN (10:15)
[2019-07-08] MEDS: ALUM & MAG HYDROX-SIMETH LIQ(MAALOX) 30 ML PO SCH ×2 (11:53→17:44)
--- NOTE | 2019-07-08 12:26 | NUR ---
PT REFUSED 1200 HHN TX. PT IS ON ROOM AIR, SPO2 96%. NO RESPIRATORY DISTRESS NOTED.
[2019-07-08 12:30] VITALS: BP 158/84
--- NOTE | 2019-07-08 12:34 | NUR ---
SATHYA GRIFFIN AWARE OF PT REFUSAL OF MED NEB.
--- NOTE | 2019-07-08 13:02 | NUR ---
9520 07/07/19 Contacted Kahlil at [facility] [phone] to request authorization to be provided for patient's admission and continued stay. Requested transfer back to network facility due to no authorization has been provided as requested. Unable to connect with a case mgr after 2 phone call attempts. Unable to leave a message on voicemail due to her voicemail box being full. Faxed Notice Regarding Post Stabilization to [phone] and scanned document into [employer].
--- NOTE | 2019-07-08 15:30 | NUR ---
BUS PASS Bus pass received from Mignon and placed in front of chart for patient use upon discharge.
--- NOTE | 2019-07-08 15:49 | NUR ---
assessment Patient is a 54 year old male who is alert and oriented. Patients cognitive abilities are intact. Prior to admission patient lived home alone and functioned independently. Patient informed me he is able to care for his own ADLs. Per patient he will return home to his prior living arrangements post discharge. Per patient he is here visiting friends for the holidays. Per patient he needs a bus pass to [place] on discharge. Patient has no other discharge needs at this time. I informed patient he has a right to speak to a social work program coordinator regarding all care. I informed patient he has a right to participate in any and all discharge planning. Patient does not have a POA and advanced directive. I have offered patient information on POA and advanced directives. I informed the patient the advantages and benefits of having an Advanced Directive. Patient verbalized understanding and agreed to discharge plan. Addendum: 07/08/19 at 1553 by Ele COE Amended: Links added.
[2019-07-08 16:57] VITALS: BP 146/97
[2019-07-08 21:59] VITALS: BP 150/107
[2019-07-08] MEDS: QUEtiapine FUMARATE 25 MG TAB PO SCH (22:11)
[2019-07-09] MEDS: IPRATROPIUM BROM 0.5 MG/2.5ML INH SOL NEB SCH ×4 (00:20→19:23)
[2019-07-09] MEDS: ALBUTEROL SULF 2.5 MG/0.5ML(0.5%) NEB SOLN NEB SCH ×4 (00:20→19:23)
[2019-07-09 05:13] VITALS: BP 133/87
[2019-07-09] MEDS: ALUM & MAG HYDROX-SIMETH LIQ(MAALOX) 30 ML PO SCH ×4 (06:00→17:24)
[2019-07-09] MEDS: BUDESONIDE (INHALATION) 0.5 MG/2 ML NEB NEB SCH ×2 (07:25→19:23)
--- NOTE | 2019-07-09 07:27 | NUR ---
REPORT GIVEN TO SATHYA LI, PT RESTING IN BED, NO ACUTE DISTRESS NOTED, NO COMPLAINTS VOICED.
--- NOTE | 2019-07-09 07:30 | NUR ---
Opening Shift Note Assumed care of patient, awake and alert, oriented and verbally responsive. Respiratory even and unlabored. No S/S of distress/SOB or pain. Skin is warm and dry to touch. Instructed on POC and to call for assist PRN, will continue to monitor for changes Q1hr and PRN.
[2019-07-09 08:42] VITALS: BP 135/95
[2019-07-09] MEDS: ANORO ELLIPTA IN SCH ×2 (10:00→10:26)
[2019-07-09] MEDS: THIAMINE HCL 100 MG TAB PO SCH (10:25)
[2019-07-09] MEDS: FOLIC ACID 1 MG TAB PO SCH (10:25)
[2019-07-09] MEDS: predniSONE 20 MG TAB PO SCH (10:25)
[2019-07-09] MEDS: FAMOTIDINE 20 MG TAB PO SCH (10:25)
[2019-07-09] MEDS: APIXABAN 5 MG TAB PO SCH ×2 (10:25→21:32)
[2019-07-09] MEDS: amLODIPine BESYLATE 5 MG TAB PO SCH (10:26)
--- NOTE | 2019-07-09 12:15 | NUR ---
Nutrition Follow-up Notes Wt.: 113.1 kg Pt was sleeping with no family by bedside. per records pt with COPD exacerbation and acute resp failure now improving. pt is currently in regular diet with adequate PO of 75% x 4 per RN doc Est. Needs ABW 94 [id number] kcal (20-23 kcal/kgBW), 94-103 gms pro (1.0-1.1 gms/kgBW). Will continue to monitor pertinent labs and reassess nutrient need prn Labs: No new labs today 07/03: GLU 227 H, CA 7.9 L. Skin: Quan scale 21 mod risk, skin intact per magazine grinder loader. GI: Pt has no BM reported with 1830 ml gastric driange per magazine grinder loader. PES: Altered nutrition related labs values r.t current chronic medical condition aeb hyperglycemia and pt on steroids Decreased nutrient needs r/t adiposity aeb pt` shigh BMI of 36.1 kgm2 Altered nutrition related lab values r/t current/chronic medical condition aeb hyperglycemia, hyponatremia, hypokalemia, hypercapnia, hypochloremia, elev. renal labs, LFTs, Lipase, hyperbilirubinemia, hypocalcemia and mod hypoalbuminemia Will continue to monitor PO intake, skin status, pertinent labs and weight trend. F/u in 3-5 days. Rec.: 1.) consider CCHO 60 gm as blood glu is high. 2) refer to [employer] dietitian on DC. 3) continue current plan of care
[2019-07-09] MEDS ORDERED: AZITHROMYCIN 250 MG TAB PO ONE (13:30)
[2019-07-09 17:00] VITALS: BP 118/89
[2019-07-09] MEDS: HYDROcodone-ACET 10/325MG TAB PO PRN (20:37)
--- NOTE | 2019-07-09 21:18 | NUR ---
RECEIVED PT RESTING IN BED, NO ACUTE DISTRESS NOTED, NO COMPLAINTS VOICED, 4 P'S ADDRESSED.
[2019-07-09] MEDS: QUEtiapine FUMARATE 25 MG TAB PO SCH (21:32)
[2019-07-09] MEDS: TEMAZEPAM 15 MG CAP PO PRN (21:32)
[2019-07-09 21:35] VITALS: BP 129/79
[2019-07-10] MEDS: IPRATROPIUM BROM 0.5 MG/2.5ML INH SOL NEB SCH ×4 (00:42→19:07)
[2019-07-10] MEDS: ALBUTEROL SULF 2.5 MG/0.5ML(0.5%) NEB SOLN NEB SCH ×4 (00:42→19:07)
[2019-07-10 05:24] LABS: Basophils # (auto) 0.1 uL; Eosinophils # (auto) 0 uL; Eosinophils % (auto) 0.4 % (0.0-7.0); Neutrophils # (auto) 7.7 uL; White Blood Cell 10.5 10^3/uL (4.4-10.8)
[2019-07-10 05:28] LABS: Basophils % (auto) 0.5 % (0.0-2.0); Hematocrit 37.5 % (41.0-53.0); Lymphocytes # (auto) 1.9 uL; Lymphocytes % (auto) 18.5 % (10.0-50.0); Mean Corpuscular Hemoglobin 23.6 pg (28.0-32.0); Mean Corpuscular Volume 73.9 fL (80.0-100.0); Monocytes # (auto) 0.7 uL; Neutrophils % (auto) 73.6 % (37.0-80.0); Nucleated Red Blood Cells % 0.1 %; Platelet Count (auto) 197 10^3/uL (140-450); Red Blood Cells 5.07 10^6/uL (4.5-5.90)
[2019-07-10 05:41] LABS: Red Cell Distribution Width 25.8 % (11.8-14.3)
[2019-07-10 05:42] VITALS: BP 123/83
[2019-07-10 05:44] LABS: Potassium 4.3 mmol/L (3.5-5.1)
[2019-07-10 05:47] LABS: BUN/Creatinine Ratio 25.3
[2019-07-10] MEDS: ALUM & MAG HYDROX-SIMETH LIQ(MAALOX) 30 ML PO SCH ×4 (06:27→17:36)
--- NOTE | 2019-07-10 08:00 | NUR ---
Opening Shift Note Assumed care of patient, awake and alert. No S/S of distress/SOB or pain. Instructed on POC and to call for assist PRN, will continue to monitor for changes Q1hr and PRN.
[2019-07-10] MEDS: HYDROcodone-ACET 10/325MG TAB PO PRN ×2 (08:01→21:32)
[2019-07-10 09:00] VITALS: BP 129/84
[2019-07-10] MEDS: THIAMINE HCL 100 MG TAB PO SCH (09:30)
[2019-07-10] MEDS: FOLIC ACID 1 MG TAB PO SCH (09:30)
[2019-07-10] MEDS: AZITHROMYCIN 250 MG TAB PO SCH (09:30)
[2019-07-10] MEDS: FAMOTIDINE 20 MG TAB PO SCH (09:30)
[2019-07-10] MEDS: amLODIPine BESYLATE 5 MG TAB PO SCH (09:30)
[2019-07-10] MEDS: predniSONE 20 MG TAB PO SCH (09:30)
[2019-07-10] MEDS: APIXABAN 5 MG TAB PO SCH ×2 (09:31→21:31)
[2019-07-10] MEDS: ANORO ELLIPTA IN SCH (09:34)
[2019-07-10] MEDS: BUDESONIDE (INHALATION) 0.5 MG/2 ML NEB NEB SCH ×2 (12:08→19:07)
[2019-07-10 13:00] VITALS: BP 137/92
[2019-07-10 17:00] VITALS: BP 140/88
--- NOTE | 2019-07-10 17:36 | NUR ---
IV insertion IV access obtained, via clean sterile technique by inserting 22 gauge catheter at after attempt(s). IV secured properly. No trauma to site. Patient tolerated well.
--- NOTE | 2019-07-10 19:30 | NUR ---
Opening Shift Note Report received from day shift RN. Assumed care of patient, awake sitting in bed and A&O x4. No S/S of distress/SOB noted and denies pain at this time. Bed locked and left in the lowest position with side rails x2 and call light left within reach with bed alarm on. Instructed on POC and to call for assist PRN, will continue to monitor for changes Q1hr and PRN.
[2019-07-10] MEDS: QUEtiapine FUMARATE 25 MG TAB PO SCH (21:32)
[2019-07-10 22:00] VITALS: BP 127/84
[2019-07-11] MEDS: ALBUTEROL SULF 2.5 MG/0.5ML(0.5%) NEB SOLN NEB SCH ×4 (00:02→11:38)
[2019-07-11] MEDS: IPRATROPIUM BROM 0.5 MG/2.5ML INH SOL NEB SCH ×4 (00:02→11:38)
[2019-07-11 03:06] VITALS: BP 127/84
--- NOTE | 2019-07-11 03:13 | NUR ---
Respiratory note: PT TAKEN OFF CPAP AND IS BACK ON ROOM AIR WITH SPO2 OF 97%. PT TOLERATING CHANGE WELL. WILL CONTINUE TO MONITOR.
[2019-07-11 04:30] VITALS: BP 103/61
[2019-07-11] MEDS: HYDROcodone-ACET 10/325MG TAB PO PRN ×2 (04:38→08:59)
[2019-07-11] MEDS: ALUM & MAG HYDROX-SIMETH LIQ(MAALOX) 30 ML PO SCH ×2 (06:00)
[2019-07-11] MEDS: BUDESONIDE (INHALATION) 0.5 MG/2 ML NEB NEB SCH (06:36)
[2019-07-11] MEDS: APIXABAN 5 MG TAB PO SCH (08:59)
[2019-07-11] MEDS: amLODIPine BESYLATE 5 MG TAB PO SCH (08:59)
[2019-07-11] MEDS: FAMOTIDINE 20 MG TAB PO SCH (08:59)
[2019-07-11 09:00] VITALS: BP 132/85
[2019-07-11] MEDS: THIAMINE HCL 100 MG TAB PO SCH (09:00)
[2019-07-11] MEDS: predniSONE 20 MG TAB PO SCH (09:00)
[2019-07-11] MEDS: AZITHROMYCIN 250 MG TAB PO SCH (09:00)
[2019-07-11] MEDS: FOLIC ACID 1 MG TAB PO SCH (09:00)
[2019-07-11] MEDS: ANORO ELLIPTA IN SCH (09:02)
[2019-07-11] MEDS ORDERED: GICOCKTAIL PO ×2 (09:25→09:31)
[2019-07-11] MEDS ORDERED: APIX5TAB PO (09:25)
[2019-07-11] MEDS ORDERED: QUET25TA46 PO (09:25)
[2019-07-11] MEDS ORDERED: AML5T PO (09:25)
[2019-07-11 10:07] VITALS: BP 132/85
--- NOTE | 2019-07-11 11:30 | NUR ---
Discharged Discharge instructions given as ordered. Encourage to follow up with PMD as instructed. All questions and concerns addressed. Patient verbalized understanding. Medication reconciliation form completed and copy given to patient. Prescriptions sent to [facility] and home medication given back to patient. IV removed with catheter intact, pressure dressing applied. Patient taken to vehicle via wheelchair with all personal belongings, accompanied by staff and family member. No distress noted at time of departure.
== END 2019-07-11 11:30 | disposition home or self-care (01) | DRG 140 ==
LOC: EDBD 23:24 → ER 23:27 → OVERFLOW 23:28 → WEST WING 07-02 05:16
PROVIDERS: ADMIT Hospitalist; ATTEND Internal Medicine
DX: J44.1 Chronic obstructive pulmonary disease with (acute) exacerbation (principal); J96.00 Acute respiratory failure, unspecified whether with hypoxia or hypercapnia; E66.01 Morbid (severe) obesity due to excess calories; F17.210 Nicotine dependence, cigarettes, uncomplicated; D50.9 Iron deficiency anemia, unspecified; F10.20 Alcohol dependence, uncomplicated; I10 Essential (primary) hypertension; J81.1 Chronic pulmonary edema; J98.11 Atelectasis; K21.9 Gastro-esophageal reflux disease without esophagitis; Z79.01 Long term (current) use of anticoagulants; Z86.711 Personal history of pulmonary embolism
CPT/HCPCS: 36415; 36600; 70480; 71045; 71046; 80048; 80053; 82805; 83735; 83880; 84484; 85025; 85379; 85610; 85730; 87070; 87205; 87804; 93005; 94640; 94660; 96365; 96375; G0378; J0696; J2405